=== PATIENT | male | born 1960 | race Caucasian/White ===

== ENCOUNTER 2017-08-28 14:59 | Emergency (ER) | payer BC ==
[2017-08-28 15:13] VITALS: BP 122/83
[2017-08-28] MEDS ORDERED: Sodium Chloride 0.9% 10 ML Syringe FLUSH PRN (15:44)
[2017-08-28] MEDS ORDERED: Sodium Chloride 0.9% 1,000 ML IV ONE (15:44)
[2017-08-28] MEDS ORDERED: Ondansetron 4 MG/2 ML SDV IVPUSH ONE (15:44)
[2017-08-28] MEDS ORDERED: HYDROmorphone 0.5 MG/0.5 ML Syringe IVPUSH ONE (15:45)
--- NOTE | 2017-08-28 15:49 | EDM.PDOC ---
ED HPI GENERAL MEDICAL PROBLEM - General Chief Complaint: Abdominal Pain Stated Complaint: ABD PAIN Time Seen by Provider: 08/28/17 15:30 Source of Information: Reports: Patient History Limitations: Reports: No Limitations - History of Present Illness INITIAL COMMENTS - FREE TEXT/NARRATIVE: Patient is a 57-year-old male who presents to the ED complaining of a mass/ swelling to the right lower inguinal region. Patient states he noticed this past Monday while taking a shower. He has pain to this generalized area. Does not recall specific event that may have precipitated this. Has no history of inguinal hernias. He has no history of hernias. He does have some mild discomfort that radiates down to his testicles. There is no discomfort or pain or swelling noted with palpation of his testicles. No burning sensation with urination. He has had intermittent diarrhea with no blood present. Denies any fever/chills, nausea/vomiting, dizziness, or any additional complaints. He was referred to the ED by a provider at [facility] with concerns of incarcerated bowel due to pain with palpation. Past history includes: Sleep apnea and chest pain. States chest pain secondary to muscle covering one was coronary arteries and when the muscle spasms causes blockage. He does take nitroglycerin intermittently for this.In addition has a history of hypercholesteremia and takes pravastatin. Arthritis takes acetaminophen. Also takes a baby aspirin daily. 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 Right Groin Pain Score (Numeric/FACES): 7 - Related Data Allergies Allergy/AdvReac Type Severity Reaction Status Date / Time No Known Allergies Allergy Verified 08/28/17 15:12 Home Meds: Home Meds Aspirin 81 mg PO DAILY #30 tab.chew 07/06/16 [Rx] Nitroglycerin 0.4 mg SL ASDIRECTED #12 tab.subl 07/06/16 [Rx] Pravastatin Sodium [Pravastatin (Pravachol)] 40 mg PO DAILY #30 tablet 07/06/16 [Rx] Acetaminophen [Tylenol Arthritis] 650 mg PO ASDIRECTED PRN 08/28/17 [History] Acetaminophen/HYDROcodone [Wolcott 325-5 MG] 1 tab PO Q6H PRN #15 tablet 08/28/17 [Rx] Past Medical History Musculoskeletal History: Reports: Osteoarthritis - Past Surgical History Neurological Surgical History: Reports: Lumbar Spine Musculoskeletal Surgical History: Reports: Arthroscopic Knee, Other (See Below) Social & Family History - Tobacco Use Smoking Status *Q: Current Every Day Smoker Years of Tobacco use: 45 Packs/Tins Daily: 0.5 Used Tobacco, but Quit: No Second Hand Smoke Exposure: No - Caffeine Use Caffeine Use: Reports: Soda - Alcohol Use Days Per Week of Alcohol Use: 2 Number of Drinks Per Day: 1 Total Drinks Per Week: 2 - Recreational Drug Use Recreational Drug Use: No ED ROS GENERAL - Review of Systems Review Of Systems: ROS reveals no pertinent complaints other than HPI. ED EXAM, GI/ABD - Physical Exam Exam: See Below Exam Limited By: No Limitations General Appearance: Alert, WD/WN, No Apparent Distress Ears: Hearing Grossly Normal Nose: Normal Inspection Throat/Mouth: Normal Voice, No Airway Compromise Neck: Normal Inspection, Supple, Non-Tender, Full Range of Motion Respiratory/Chest: No Respiratory Distress, Lungs Clear, Normal Breath Sounds, Chest Non-Tender Cardiovascular: Normal Peripheral Pulses, Regular Rate, Rhythm, No Murmur GI/Abdominal Exam: Normal Bowel Sounds, Soft, No Organomegaly, Tender (Right inguinal region with swelling noted. Increasing pain with palpation. Findings concerning for inguinal hernia.) (Male) Exam: Normal Inspection, Circumcised. No: Scrotum Tenderness (L), Scrotum Tenderness (R), Testicular Tenderness (L), Testicular Tenderness (R) Neurological: Alert, Oriented, CN II-XII Intact, Normal Cognition, No Motor/ Sensory Deficits Psychiatric: Normal Affect, Normal Mood Skin Exam: Warm, Dry, Intact, Normal Color Course - Vital Signs Last Recorded V/S: Last Vital Signs Temp 97.5 F 08/28/17 15:09 Pulse 72 08/28/17 15:09 Resp 18 08/28/17 15:09 BP 122/83 08/28/17 15:09 Pulse Ox 97 08/28/17 15:09 - Orders/Labs/Meds Orders: Active Orders 24 hr Category Date Time Status Peripheral IV Care [RC] . DIRECTED Care 08/28/17 15:45 Active NPO Now [Nothing per Oral Now Diet] [DIET] Diet 08/28/17 Breakfast Active Abdomen Pelvis w Cont [CT] Stat Exams 08/28/17 15:44 Taken Sodium Chloride 0.9% [Saline Flush] Med 08/28/17 15:44 Active 10 ml FLUSH ASDIRECTED PRN Peripheral IV Insertion Adult [OM.PC] Stat Oth 08/28/17 15:44 Ordered Medication Orders Sodium Chloride (Saline Flush) 10 ml FLUSH ASDIRECTED PRN PRN Reason: Keep Vein Open Last Admin: 08/28/17 15:54 Dose: 10 ml Labs: Laboratory Tests 08/28/17 08/28/17 08/28/17 Range/Units 15:50 15:50 15:50 WBC 9.85 H (4.23-9.07) K/mm3 RBC 4.78 (4.63-6.08) M/mm3 Hgb 14.5 (13.7-17.5) gm/L Hct 42.0 (40.1-51.0) % MCV 87.9 (79.0-92.2) fl MCH 30.3 (25.7-32.2) pg MCHC 34.5 (32.2-35.5) g/dl RDW Std Deviation 43.1 (35.1-43.9) fL Plt Count 239 (163-337) K/mm3 MPV 11.0 (9.4-12.3) fl Neut % (Auto) 62.6 (34.0-67.9) % Lymph % (Auto) 27.0 (21.8-53.1) % Burke % (Auto) 7.0 (5.3-12.2) % Eos % (Auto) 2.7 (0.8-7.0) Baso % (Auto) 0.5 (0.1-1.2) % Neut # (Auto) 6.16 H (1.78-5.38) K/mm3 Lymph # (Auto) 2.66 (1.32-3.57) K/mm3 Burke # (Auto) 0.69 (0.30-0.82) K/mm3 Eos # (Auto) 0.27 (0.04-0.54) K/mm3 Baso # (Auto) 0.05 (0.01-0.08) K/mm3 Sodium 142 (136-145) mEq/L Potassium 3.9 (3.5-5.1) mEq/L Chloride 107 (98-107) mEq/L Carbon Dioxide 27 (21-32) mEq/L Anion Gap 11.9 (5-15) BUN 8 (7-18) mg/dL Creatinine 1.0 (0.7-1.3) mg/dL Est Cr Clr Drug Dosing 86.18 mL/min Estimated GFR (MDRD) > 60 (>60) mL/min BUN/Creatinine Ratio 8.0 L (14-18) Glucose 111 H (74-106) mg/dL Calcium 8.8 (8.5-10.1) mg/dL Total Bilirubin 0.3 (0.2-1.0) mg/dL AST 19 (15-37) U/L ALT 23 (16-63) U/L Alkaline Phosphatase 89 (46-116) U/L C-Reactive Protein 0.6 (<1.0) mg/dL Total Protein 7.3 (6.4-8.2) g/dl Albumin 3.7 (3.4-5.0) g/dl Globulin 3.6 gm/dL Albumin/Globulin Ratio 1.0 (1-2) Urine Color Yellow (Yellow) Urine Appearance Clear (Clear) Urine pH 6.5 (5.0-8.0) Ur Specific [place] 1.020 (1.005-1.030) Urine Protein Negative (Negative) Urine Glucose (UA) Negative (Negative) Urine Ketones Negative (Negative) Urine Occult Blood Negative (Negative) Urine Nitrite Negative (Negative) Urine Bilirubin Negative (Negative) Urine Urobilinogen 0.2 (0.2-1.0) Ur Leukocyte Esterase Negative (Negative) Urine RBC Not seen (0-5) /hpf Urine WBC Not seen (0-5) /hpf Ur Epithelial Cells 0-5 (0-5) /hpf Urine Bacteria Few (FEW) /hpf Urine Mucus Few (FEW) /hpf Meds: Medications Generic Name Dose Route Start Last Admin Trade Name Freq PRN Reason Stop Dose Admin Sodium Chloride 10 ml 08/28/17 15:44 08/28/17 15:54 Saline Flush FLUSH 10 ml ASDIRECTED PRN Administration Keep Vein Open Discontinued Medications Generic Name Dose Route Start Last Admin Trade Name Freq PRN Reason Stop Dose Admin Diatrizoate Meglum/Diatrizoate Sod 90 ml 08/28/17 16:26 08/28/17 17:04 Gastrografin 37% PO 08/28/17 16:27 90 ml ONETIME ONE Administration Hydromorphone HCl 0.5 mg 08/28/17 15:45 08/28/17 15:55 Dilaudid IVPUSH 08/28/17 15:46 0.5 mg ONETIME ONE Administration Sodium Chloride 1,000 mls @ 500 mls/hr 08/28/17 15:44 08/28/17 15:54 Normal Saline IV 08/28/17 17:43 500 mls/hr ONETIME ONE Administration Iopamidol 125 ml 08/28/17 16:26 08/28/17 17:04 Isovue-300 (61%) IVPUSH 08/28/17 16:27 125 ml ONETIME ONE Administration Ondansetron HCl 4 mg 08/28/17 15:44 08/28/17 15:54 Zofran IVPUSH 08/28/17 15:45 4 mg ONETIME ONE Administration Sodium Chloride 10 ml 08/28/17 16:26 08/28/17 17:04 Saline Flush FLUSH 08/28/17 16:27 10 ml ONETIME ONE Administration - Re-Assessments/Exams Free Text/Narrative Re-Assessment/Exam: IV established with Dilaudid 0.5 mg IVP, 4 mg of Zofran IVP, and normal saline. Initial labs and studies include CBC, chem 14, CRP, UA, and CT the abdomen and pelvis with IV and oral contrast. Patient will be placed on nothing by mouth status. Labs reviewed: CBC and chemistry panel are essentially normal. Glucose was mildly elevated at 111. CRP 0.6. UA revealed no concerning findings. 08/28/17 17:53 CT abdomen and pelvis Technique: Multiple axial sections were obtained from above the dome of the diaphragm inferiorly through the pubic symphysis. Intravenous and oral contrast was utilized. Delayed images were obtained through the bladder. Comparison: No prior abdominal CT. Findings: Small portion of the visualized lung bases shows nothing acute. Liver shows several small low density lesions which measure less than 1 cm and are too small to characterize by Hounsfield unit measurements but most likely represent several minimal cysts. No additional abnormality seen within the liver. Spleen appears within normal limits. Adrenal glands show no nodule. Pancreas is within normal limits. Kidneys show symmetric contrast enhancement without hydronephrosis or mass. Aorta shows no aneurysmal dilatation. No retroperitoneal adenopathy or mesenteric abnormalities are seen. Small fat- containing umbilical hernia is noted. Gallbladder shows no calcified gallstones. Minimal diverticulosis is seen within the sigmoid colon without inflammatory change. Appendix is seen and is normal. No pelvic mass or adenopathy is seen. Fat-containing bilateral inguinal hernias are noted. No bowel dilatation is seen. Delayed images shows contrast within the distal ureters and within the bladder. Bone window settings were reviewed showing slight degenerative change which is scattered throughout the spine. Impression: 1. Incidental findings. Nothing acute is identified on CT study of the abdomen and pelvis. 08/28/17 17:[address] Segovia on-call general surgeon. Recommends patient call his clinic tomorrow and schedule appt that is convenient for him to have the inguinal hernias repaired. Departure - Departure Time of Disposition: 18:05 Disposition: Home, Self-Care 01 Condition: Good Clinical Impression: Abdominal pain Qualifiers: Abdominal location: lower abdomen, unspecified Qualified Code(s): R10.30 - Lower abdominal pain, unspecified Inguinal hernia Qualifiers: Obstruction and gangrene presence: without obstruction or gangrene Laterality: bilateral Recurrence: not specified as recurrent Qualified Code(s): K40.20 - Bilateral inguinal hernia, without obstruction or gangrene, not specified as recurrent - Discharge Information Prescriptions: Acetaminophen/HYDROcodone [Wolcott 325-5 MG] 1 tab PO Q6H PRN #15 tablet PRN Reason: Pain (Severe 7-10) Instructions: Inguinal Hernia, Adult, [id number], Abdominal Pain, Adult, Easy -to-Read Referrals: Lester Segovia MD [Physician] - Forms: ED Department Discharge Additional Instructions: CT of the abdomen revealed bilateral fat containing inguinal hernias. Call Dr. Segovia's office tomorrow to schedule an appointment that is convenient for you. Take hydrocodone one tab every 6 hours as needed for discomfort that is not controlled with Tylenol and/or ibuprofen. Do not take Tylenol and norco together. Do not drive while taking Wolcott. Do not drive this evening since receiving a sedative medication. Refrain from any activities that cause worsening pain. Return to the ED for any new or worsening symptoms. Take a stool softener such as miralax or colace while on the norco. - My Orders Last 24 Hours: My Active Orders 08/28/17 15:44 Abdomen Pelvis w Cont [CT] Stat Sodium Chloride 0.9% [Saline Flush] 10 ml FLUSH ASDIRECTED PRN Peripheral IV Insertion Adult [OM.PC] Stat 08/28/17 15:45 Peripheral IV Care [RC] . DIRECTED 08/28/17 Breakfast NPO Now [Nothing per Oral Now Diet] [DIET] - Assessment/Plan Last 24 Hours: My Active Orders 08/28/17 15:44 Abdomen Pelvis w Cont [CT] Stat Sodium Chloride 0.9% [Saline Flush] 10 ml FLUSH ASDIRECTED PRN Peripheral IV Insertion Adult [OM.PC] Stat 08/28/17 15:45 Peripheral IV Care [RC] . DIRECTED 08/28/17 Breakfast NPO Now [Nothing per Oral Now Diet] [DIET]
[2017-08-28] MEDS ORDERED: Sodium Chloride 0.9% 10 ML Syringe FLUSH ONE (16:26)
[2017-08-28] MEDS ORDERED: Iopamidol 612 MG/ML 150 ML Bottle IVPUSH ONE (16:26)
[2017-08-28] MEDS ORDERED: Diatrizoate Meglumine/Diatrizoate Sodium 37% 120 ML Bottle PO ONE (16:26)
--- NOTE | 2017-08-29 06:37 | CT ---
CT abdomen and pelvis Technique: Multiple axial sections were obtained from above the dome of the diaphragm inferiorly through the pubic symphysis. Intravenous and oral contrast was utilized. Delayed images were obtained through the bladder. Comparison: No prior abdominal CT. Findings: Small portion of the visualized lung bases shows nothing acute. Liver shows several small low density lesions which measure less than 1 cm and are too small to characterize by Hounsfield unit measurements but most likely represent several minimal cysts. No additional abnormality seen within the liver. Spleen appears within normal limits. Adrenal glands show no nodule. Pancreas is within normal limits. Kidneys show symmetric contrast enhancement without hydronephrosis or mass. Aorta shows no aneurysmal dilatation. No retroperitoneal adenopathy or mesenteric abnormalities are seen. Small fat-containing umbilical hernia is noted. Gallbladder shows no calcified gallstones. Minimal diverticulosis is seen within the sigmoid colon without inflammatory change. Appendix is seen and is normal. No pelvic mass or adenopathy is seen. Fat-containing bilateral inguinal hernias are noted. No bowel dilatation is seen. Delayed images shows contrast within the distal ureters and within the bladder. Bone window settings were reviewed showing slight degenerative change which is scattered throughout the spine. Impression: 1. Incidental findings. Nothing acute is identified on CT study of the abdomen and pelvis. Diagnostic code #2
== END 2017-08-28 18:32 | disposition home or self-care (01) ==
LOC: JD.ED 14:59
DX: K40.20 Bilateral inguinal hernia, without obstruction or gangrene, not specified as recurrent (principal); F17.210 Nicotine dependence, cigarettes, uncomplicated; M19.90 Unspecified osteoarthritis, unspecified site; Z79.82 Long term (current) use of aspirin; Z79.899 Other long term (current) drug therapy
CPT/HCPCS: 36415; 74177; 80053; 81001; 85025; 86140; 96361; 96374; 96375; 99284; J1170; J2405; J7040; J7050; Q9963; Q9967; 99283

== ENCOUNTER 2017-09-01 07:38 | Day surgery (SDC) | payer BC ==
[~2017-09-01 07:38] MED LIST: Dexamethasone 4 MG/ML SDV ONE; Ketorolac 30 MG/ML SDV ONE; Lactated Ringers 1,000 ML IV SCH; Lactated Ringers 1,000 ML ONE; Lidocaine 1% 4 ML ONE; Lidocaine 1%/Sod Bicarbonate in NS 8.4% 1 ML Syringe IV PRN; Midazolam 1 MG/ML 2 ML SDV ONE; Ondansetron 4 MG/2 ML SDV ONE; Propofol 200 MG/20 ML SDV ONE; Sodium Chloride 0.9% 10 ML Syringe FLUSH PRN; ceFAZolin 1 GM Vial ONE; fentaNYL 250 MCG/5 ML SDV ONE
--- NOTE | 2017-09-01 08:57 | PCM.PREANE ---
Preanesthetic Assessment - Anesthesia/Transfusion/Family Hx Anesthesia History: Prior Anesthesia Without Reaction Family History of Anesthesia Reaction: No Transfusion History: No Prior Transfusion(s) - Review of Systems General: No Symptoms Pulmonary: No Symptoms Cardiovascular: Chest Pain (last experienced was a year ago) Gastrointestinal: Constipation (at times) Neurological: No Symptoms Other: Reports: None - Physical Assessment NPO Status Date: 08/31/17 NPO Status Time: 21:30 Pulse: 67 O2 Sat by Pulse Oximetry: 97 Respiratory Rate: 16 Blood Pressure: 108/76 Temperature: 36.7 C Vital Signs: Last Vital Signs Temp 36.7 C 09/01/17 07:45 Pulse 67 09/01/17 07:45 Resp 16 09/01/17 07:45 BP 108/76 09/01/17 07:45 Pulse Ox 97 09/01/17 07:45 Height: 1.78 m Weight: 104.78 kg ASA Class: 2 Mental Status: Alert & Oriented x3 Dentition: Reports: Broken Tooth/Teeth, Missing Tooth/Teeth Thyro-Mental Finger Breadths: 2 Mouth Opening Finger Breadths: 2 ROM/Head Extension: Full Lungs: Clear to Auscultation, Normal Respiratory Effort Cardiovascular: Regular Rate, Regular Rhythm, No Murmurs - Imaging/EKG Impressions: SR Abn. R wave progression 08/29/2017 - Allergies Allergies/Adverse Reactions: Allergies Allergy/AdvReac Type Severity Reaction Status Date / Time No Known Allergies Allergy Verified 08/28/17 15:12 PreAnesthesia Questionnaire HEENT History: Reports: Sinusitis, Other (See Below) Other HEENT History: pharyngitis Cardiovascular History: Reports: High Cholesterol, Other (See Below) Other Cardiovascular History: cardiac catheterization, Right cornary artery muscle bundle, chest pain Respiratory History: Reports: Sleep Apnea, Other (See Below) Other Respiratory History: upper respiratory infection, cough Gastrointestinal History: Reports: GERD, Other (See Below) Other Gastrointestinal History: RLQ pain Genitourinary History: Reports: Other (See Below) Other Genitourinary History: right testicle pain 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 Musculoskeletal History: Reports: Back Pain, Chronic, Osteoarthritis, Other ( See Below) Other Musculoskeletal History: low back degenerative joint disease Psychiatric History: Reports: Anxiety Endocrine/Metabolic History: Reports: None Hematologic History: Reports: None Immunologic History: Reports: None Oncologic (Cancer) History: Reports: None Dermatologic History: Reports: None - Past Surgical History Head Surgeries/Procedures: Reports: None HEENT Surgical History: Reports: Oral Surgery Cardiovascular Surgical History: Reports: None GI Surgical History: Reports: None Male Surgical History: Reports: Vasectomy Endocrine Surgical History: Reports: None Neurological Surgical History: Reports: Lumbar Spine Musculoskeletal Surgical History: Reports: Arthroscopic Knee, Other (See Below) Other Musculoskeletal Surgeries/Procedures:: left elbow surgery, low back surgery Oncologic Surgical History: Reports: None Dermatological Surgical History: Reports: None - SUBSTANCE USE Smoking Status *Q: Current Every Day Smoker Tobacco Use Within Last Twelve Months: Cigarettes Second Hand Smoke Exposure: No Days Per Week of Alcohol Use: 2 Number of Drinks Per Day: 1 Total Drinks Per Week: 2 Recreational Drug Use History: No - HOME MEDS Home Medications: Home Meds Aspirin 81 mg PO DAILY #30 tab.chew 07/06/16 [Rx] Nitroglycerin 0.4 mg SL ASDIRECTED #12 tab.subl 07/06/16 [Rx] Pravastatin Sodium [Pravastatin (Pravachol)] 40 mg PO DAILY #30 tablet 07/06/16 [Rx] Acetaminophen [Tylenol Arthritis] 650 mg PO ASDIRECTED PRN 08/28/17 [History] Omeprazole [Omeprazole] 20 mg PO BID 08/31/17 [History] Hydrocodone/Acetaminophen [Hydrocodon-Acetaminophen 5-325] 1 tab PO ASDIRECTED PRN 09/01/17 [History] - CURRENT (IN HOUSE) MEDS Current Meds: Current Medications Lactated Ringer's (Ringers, Lactated) 1,000 mls @ 125 mls/hr IV ASDIRECTED JAVAN Last Admin: 09/01/17 08:00 Dose: 125 mls/hr Lidocaine/Sodium Bicarbonate (Buffered Lidocaine 1% In Ns 8.4%) 0.25 ml IV ONETIME PRN PRN Reason: Prior to IV Start Last Admin: 09/01/17 08:00 Dose: 0.25 ml Sodium Chloride (Saline Flush) 10 ml FLUSH ASDIRECTED PRN PRN Reason: Keep Vein Open Discontinued Medications Cefazolin Sodium (Ancef) Confirm Administered Dose 2 gm .ROUTE .STK-MED ONE Stop: 09/01/17 07:06 Dexamethasone (Dexamethasone) Confirm Administered Dose 4 mg .ROUTE .STK-MED ONE Stop: 09/01/17 07:06 Fentanyl (Sublimaze) Confirm Administered Dose 250 mcg .ROUTE .STK-MED ONE Stop: 09/01/17 07:07 Lidocaine HCl (Xylocaine-Mpf 1%) Confirm Administered Dose 4 mls @ as directed .ROUTE .STK-MED ONE Stop: 09/01/17 07:06 Lactated Ringer's (Ringers, Lactated) Confirm Administered Dose 1,000 mls @ as directed .ROUTE .STK-MED ONE Stop: 09/01/17 07:06 Ketorolac Tromethamine (Toradol) Confirm Administered Dose 30 mg .ROUTE .STK- MED ONE Stop: 09/01/17 07:06 Midazolam HCl (Versed 1 Mg/Ml) Confirm Administered Dose 2 mg .ROUTE .STK-MED ONE Stop: 09/01/17 07:06 Ondansetron HCl (Zofran) Confirm Administered Dose 4 mg .ROUTE .STK-MED ONE Stop: 09/01/17 07:06 Propofol (Diprivan 20 Ml) Confirm Administered Dose 200 mg .ROUTE .STK-MED ONE Stop: 09/01/17 07:06
[2017-09-01] MEDS ORDERED: Lidocaine 1% with EPINEPHrine 1:100,000 20 ML MDV ONE (09:03)
[2017-09-01] MEDS ORDERED: Bupivacaine 0.5%/EPINEPHrine 1:200,000 50 ML MDV ONE (09:03)
[2017-09-01] MEDS ORDERED: HYDROmorphone 0.5 MG/0.5 ML Syringe IVPUSH PRN (09:39)
[2017-09-01] MEDS ORDERED: fentaNYL 100 MCG/2 ML SDV IVPUSH PRN (09:39)
[2017-09-01] MEDS ORDERED: Ondansetron 4 MG/2 ML SDV IVPUSH PRN (09:39)
[2017-09-01] MEDS ORDERED: Albuterol 0.083% 2.5 MG/3 ML Neb Soln NEB PRN (09:39)
[2017-09-01] MEDS ORDERED: HYDROmorphone 1 MG/ML Syringe ONE ×2 (09:41→10:06)
[2017-09-01] MEDS ORDERED: Phenylephrine 1 MG in Sodium Chloride 0.9% 10 ML IV SCH (09:45)
[2017-09-01] MEDS ORDERED: Lactated Ringers 1,000 ML ONE (10:06)
[2017-09-01] MEDS ORDERED: fentaNYL 100 MCG/2 ML SDV ONE (10:49)
--- NOTE | 2017-09-01 11:17 | PCM.OPNOTE ---
- General Post-Op/Procedure Note Date of Surgery/Procedure: 09/01/17 Operative Procedure(s): Open right inguinal hernia repair with plug and mesh Findings: Large direct inguinal hernia with chronic scarring of the canal structures Pre Op Diagnosis: Symptomatic right inguinal hernia Post-Op Diagnosis: Direct right inguinal hernia Anesthesia Technique: General LMA, Local Primary Surgeon: Lester Segovia Pathology: None EBL in mLs: 5 Complications: None Condition: Good Free Text/Narrative:: After adequate LMA general anesthesia was obtained the patient's right groin was prepped and draped sterilely for the procedure. Local analgesia was given over the inguinal canal. A 15 blade was used to make a skin incision into the subcutaneous fat. The superficial veins were ligated with 3-0 Vicryl and divided. The incision was then deepened to the external oblique fascia which was opened in the direction of its fibers carefully avoiding the ilioinguinal nerve which was displaced inferiorly. The spermatic cord and structures were mobilized at the pubic tubercle and controlled with a [place] drain. There was a large direct hernia sac which was deep to the cord. I the cord structures from the direct hernia and reduced it through the floor. I did not open the floor of the canal. I then explored the spermatic cord for an indirect component and there was none. I placed a plug in the floor of the canal and secured it to the edge of the inguinal ligament and the arch with 3 interrupted 0 Ethibond sutures. I then placed a Prolene mesh in the floor of the canal running 2-0 Prolene along the shelving edge and along the internal oblique fascia allowing the spermatic cord to pass through a keyhole laterally. The field was irrigated out with saline. I replaced the cord structures after hemostasis. I closed the external oblique fascia over the nerve and the spermatic cord. [place]'s was closed with 3-0 Vicryl and the skin was closed with a 4-0 Vicryl after additional local analgesia was given in the area. There were no procedural complications.
--- NOTE | 2017-09-01 11:25 | PCM.POSTAN ---
POST ANESTHESIA ASSESSMENT - MENTAL STATUS Mental Status: Alert - VITAL SIGNS Pulse Rate: 83 SaO2: 92 Resp Rate: 11 Blood Pressure: 118/83 Temperature: 36.3 C - RESPIRATORY Respiratory Status: Respiratory Rate WNL, Airway Patent, O2 Saturation Stable, Supplemental Oxygen - CARDIOVASCULAR CV Status: Pulse Rate WNL, Blood Pressure Stable - GASTROINTESTINAL GI Status: No Symptoms - POST OP HYDRATION Hydration Status: Adequate & Stable
[2017-09-01 12:44] VITALS: BP 118/86
--- NOTE | 2017-09-01 13:41 | PCM48HPAN ---
Post Anesthesia Note - EVALUATION WITHIN 48HRS OF ANESTHETIC Vital Signs in Normal Range: Yes Patient Participated in Evaluation: Yes Respiratory Function Stable: Yes Airway Patent: Yes Cardiovascular Function Stable: Yes Hydration Status Stable: Yes Pain Control Satisfactory: Yes Nausea and Vomiting Control Satisfactory: Yes Mental Status Recovered: Yes
== END 2017-09-01 13:30 | disposition home or self-care (01) ==
LOC: JD.SDS 07:38
PROVIDERS: ATTEND Surgery
DX: K40.90 Unilateral inguinal hernia, without obstruction or gangrene, not specified as recurrent (principal); E78.00 Pure hypercholesterolemia, unspecified; G47.30 Sleep apnea, unspecified; K21.9 Gastro-esophageal reflux disease without esophagitis; M19.90 Unspecified osteoarthritis, unspecified site; F17.210 Nicotine dependence, cigarettes, uncomplicated; Z98.52 Vasectomy status; Z98.818 Other dental procedure status; Z98.890 Other specified postprocedural states; Z79.82 Long term (current) use of aspirin; Z79.899 Other long term (current) drug therapy
CPT/HCPCS: 49505; C1781; J0690; J1100; J1170; J2250; J2405; J3010; J7120; 00830; J1885; J2704

== ENCOUNTER 2017-09-04 12:06 | Inpatient (IN) | payer BC ==
[2017-09-04] MEDS ORDERED: Sodium Chloride 0.9% 10 ML Syringe FLUSH PRN ×3 (12:24→21:18)
[2017-09-04] MEDS ORDERED: Sodium Chloride 0.9% 1,000 ML IV SCH (12:30)
[2017-09-04] MEDS ORDERED: Diatrizoate Meglumine/Diatrizoate Sodium 37% 120 ML Bottle PO ONE (12:31)
[2017-09-04] MEDS ORDERED: Iopamidol 612 MG/ML 150 ML Bottle IVPUSH ONE (12:31)
--- NOTE | 2017-09-04 12:37 | EDM.PDOC ---
ED HPI GENERAL MEDICAL PROBLEM - General Chief Complaint: Abdominal Pain Stated Complaint: [facility] Time Seen by Provider: 09/04/17 12:13 Source of Information: Reports: Patient, EMS History Limitations: Reports: No Limitations - History of Present Illness INITIAL COMMENTS - FREE TEXT/NARRATIVE: The patient presents by [facility] for low back pain and lower abdominal pain. This started early this morning at 3am. He is 5 days post right inguinal hernia repair that was done here at [facility] by Dr Segovia. He has a history of bulging discs in his low back and he has muscle cramps with it. He also has nausea. He has not had a good BM since Monday. He has no fever, chills, cough, chest pain or shortness of breath. He has pain to the right groin with some edema. He denies dysuria. Onset: Sudden Duration: Hour(s): (3am) Location: Reports: Abdomen Quality: Reports: Sharp Severity: Severe Improves with: Reports: None Worsens with: Reports: None Associated Symptoms: Reports: Nausea/Vomiting. Denies: Chest Pain, Fever/Chills , Shortness of Breath Right Groin Pain Score (Numeric/FACES): 7 - Related Data Allergies Allergy/AdvReac Type Severity Reaction Status Date / Time No Known Allergies Allergy Verified 09/04/17 12:16 Home Meds: Home Meds Aspirin 81 mg PO DAILY #30 tab.chew 07/06/16 [Rx] Nitroglycerin 0.4 mg SL ASDIRECTED #12 tab.subl 07/06/16 [Rx] Pravastatin Sodium [Pravastatin (Pravachol)] 40 mg PO DAILY #30 tablet 07/06/16 [Rx] Acetaminophen [Tylenol Arthritis] 650 mg PO ASDIRECTED PRN 08/28/17 [History] Omeprazole 20 mg PO BID 08/31/17 [History] Hydrocodone/Acetaminophen [Hydrocodon-Acetaminophen 5-325] 1 tab PO ASDIRECTED PRN 09/01/17 [History] oxyCODONE HCl/Acetaminophen [oxyCODONE-Acetaminophen 5-325] 1 tab PO Q6HR PRN [History] Past Medical History HEENT History: Reports: Sinusitis, Other (See Below) Other HEENT History: pharyngitis Cardiovascular History: Reports: High Cholesterol, Other (See Below) Other Cardiovascular History: cardiac catheterization, Right cornary artery muscle bundle, chest pain Respiratory History: Reports: Sleep Apnea, Other (See Below) Other Respiratory History: upper respiratory infection, cough Gastrointestinal History: Reports: GERD, Other (See Below) Other Gastrointestinal History: RLQ pain Genitourinary History: Reports: Other (See Below) Other Genitourinary History: right testicle pain [employer] History: Reports: None Musculoskeletal History: Reports: Back Pain, Chronic, Osteoarthritis, Other ( See Below) Other Musculoskeletal History: low back degenerative joint disease Psychiatric History: Reports: Anxiety Endocrine/Metabolic History: Reports: None Hematologic History: Reports: None Immunologic History: Reports: None Oncologic (Cancer) History: Reports: None Dermatologic History: Reports: None - Past Surgical History Head Surgeries/Procedures: Reports: None HEENT Surgical History: Reports: Oral Surgery Cardiovascular Surgical History: Reports: None GI Surgical History: Reports: Hernia Repair/Other Male Surgical History: Reports: Vasectomy Endocrine Surgical History: Reports: None Neurological Surgical History: Reports: Lumbar Spine Musculoskeletal Surgical History: Reports: Arthroscopic Knee, Other (See Below) Other Musculoskeletal Surgeries/Procedures:: left elbow surgery, low back surgery Oncologic Surgical History: Reports: None Dermatological Surgical History: Reports: None Social & Family History - Family History Family Medical History: Noncontributory - Tobacco Use Smoking Status *Q: Current Every Day Smoker Years of Tobacco use: 45 Packs/Tins Daily: 0.5 Used Tobacco, but Quit: No Second Hand Smoke Exposure: No - Caffeine Use Caffeine Use: Reports: Coffee, Soda - Alcohol Use Days Per Week of Alcohol Use: 2 Number of Drinks Per Day: 1 Total Drinks Per Week: 2 - Recreational Drug Use Recreational Drug Use: No ED ROS GENERAL - Review of Systems Review Of Systems: See Below Constitutional: Reports: No Symptoms HEENT: Reports: No Symptoms Respiratory: Reports: No Symptoms Cardiovascular: Reports: No Symptoms Endocrine: Reports: No Symptoms GI/Abdominal: Reports: Abdominal Pain, Constipation, Nausea. Denies: Vomiting ED EXAM, GI/ABD - Physical Exam Exam: See Below Exam Limited By: No Limitations General Appearance: Alert, No Apparent Distress Ears: Normal External Exam Nose: Normal Inspection Head: Atraumatic, Normocephalic Neck: Normal Inspection Respiratory/Chest: No Respiratory Distress, Lungs Clear, Normal Breath Sounds Cardiovascular: Regular Rate, Rhythm, No Edema, No Murmur GI/Abdominal Exam: Soft, No Organomegaly, No Mass, Tender (Moderate to the lower abdomen), Other (Edema but no erythema to the right inguinal area) Course - Vital Signs Last Recorded V/S: Last Vital Signs Temp 99.0 F 09/04/17 12:11 Pulse 92 09/04/17 12:11 Resp 14 09/04/17 12:11 BP 130/75 09/04/17 12:11 Pulse Ox 79 L 09/04/17 12:30 - Orders/Labs/Meds Orders: Active Orders 24 hr Category Date Time Status Peripheral IV Care [RC] . DIRECTED Care 09/04/17 12:25 Active CULTURE BLOOD [BC] Stat Lab 09/04/17 15:00 Ordered CULTURE BLOOD [BC] Stat Lab 09/04/17 15:00 Ordered UA W/MICROSCOPIC [URIN] Stat Lab 09/04/17 12:24 Uncollected Sodium Chloride 0.9% [Normal Saline] 1,000 ml Med 09/04/17 12:30 Active IV ASDIRECTED Sodium Chloride 0.9% [Saline Flush] Med 09/04/17 12:24 Active 10 ml FLUSH ASDIRECTED PRN Sodium Chloride 0.9% [Saline Flush] Med 09/04/17 12:31 Active 10 ml FLUSH ONETIME PRN Vancomycin [Vancocin] 1.5 gm Med 09/04/17 14:56 Active Sodium Chloride 0.9% [Normal Saline] 250 ml IV ONETIME cefOXitin [Mefoxin] 2 gm Med 09/04/17 14:56 Active Sodium Chloride 0.9% [Normal Saline] 100 ml IV ONETIME Blood Culture x2 Reflex Set [OM.PC] Stat Oth 09/04/17 15:00 Ordered Peripheral IV Insertion Adult [OM.PC] Stat Oth 09/04/17 12:24 Ordered Medication Orders Sodium Chloride (Normal Saline) 1,000 mls @ 125 mls/hr IV ASDIRECTED [facility] Last Admin: 09/04/17 12:39 Dose: 125 mls/hr Cefoxitin Sodium 2 gm/ Sodium (Chloride) 100 mls @ 200 mls/hr IV ONETIME ONE Stop: 09/04/17 15:25 Vancomycin HCl 1.5 gm/ Sodium (Chloride) 250 mls @ 250 mls/hr IV ONETIME ONE Stop: 09/04/17 15:55 Sodium Chloride (Saline Flush) 10 ml FLUSH ASDIRECTED PRN PRN Reason: Keep Vein Open Last Admin: 09/04/17 12:40 Dose: 10 ml Sodium Chloride (Saline Flush) 10 ml FLUSH ONETIME PRN PRN Reason: IV FLUSH Last Admin: 09/04/17 13:43 Dose: 10 ml Labs: Laboratory Tests 09/04/17 09/04/17 Range/Units 12:50 12:50 WBC 15.48 H (4.23-9.07) K/mm3 RBC 4.64 (4.63-6.08) M/mm3 Hgb 14.0 (13.7-17.5) gm/L Hct 41.1 (40.1-51.0) % MCV 88.6 (79.0-92.2) fl MCH 30.2 (25.7-32.2) pg MCHC 34.1 (32.2-35.5) g/dl RDW Std Deviation 43.0 (35.1-43.9) fL Plt Count 234 (163-337) K/mm3 MPV 10.3 (9.4-12.3) fl Neut % (Auto) 79.2 H (34.0-67.9) % Lymph % (Auto) 10.7 L (21.8-53.1) % Holt % (Auto) 8.6 (5.3-12.2) % Eos % (Auto) 1.0 (0.8-7.0) Baso % (Auto) 0.2 (0.1-1.2) % Neut # (Auto) 12.26 H (1.78-5.38) K/mm3 Lymph # (Auto) 1.66 (1.32-3.57) K/mm3 Holt # (Auto) 1.33 H (0.30-0.82) K/mm3 Eos # (Auto) 0.16 (0.04-0.54) K/mm3 Baso # (Auto) 0.03 (0.01-0.08) K/mm3 Sodium 139 (136-145) mEq/L Potassium 3.9 (3.5-5.1) mEq/L Chloride 101 (98-107) mEq/L Carbon Dioxide 25 (21-32) mEq/L Anion Gap 16.9 H (5-15) BUN 14 (7-18) mg/dL Creatinine 1.1 (0.7-1.3) mg/dL Est Cr Clr Drug Dosing 78.35 mL/min Estimated GFR (MDRD) > 60 (>60) mL/min BUN/Creatinine Ratio 12.7 L (14-18) Glucose 101 (74-106) mg/dL Calcium 9.0 (8.5-10.1) mg/dL Total Bilirubin 0.8 (0.2-1.0) mg/dL AST 14 L (15-37) U/L ALT 17 (16-63) U/L Alkaline Phosphatase 75 (46-116) U/L Total Protein 7.4 (6.4-8.2) g/dl Albumin 3.3 L (3.4-5.0) g/dl Globulin 4.1 gm/dL Albumin/Globulin Ratio 0.8 L (1-2) Lipase 92 (73-393) U/L Meds: Medications Generic Name Dose Route Start Last Admin Trade Name Freq PRN Reason Stop Dose Admin Sodium Chloride 1,000 mls @ 125 mls/hr 09/04/17 12:30 09/04/17 12:39 Normal Saline IV 125 mls/hr ASDIRECTED JAVAN Administration Cefoxitin Sodium 2 gm/ Sodium 100 mls @ 200 mls/hr 09/04/17 14:56 Chloride IV 09/04/17 15:25 ONETIME ONE Vancomycin HCl 1.5 gm/ Sodium 250 mls @ 250 mls/hr 09/04/17 14:56 Chloride IV 09/04/17 15:55 ONETIME ONE Sodium Chloride 10 ml 09/04/17 12:24 09/04/17 12:40 Saline Flush FLUSH 10 ml ASDIRECTED PRN Administration Keep Vein Open Sodium Chloride 10 ml 09/04/17 12:31 09/04/17 13:43 Saline Flush FLUSH 10 ml ONETIME PRN Administration IV FLUSH Discontinued Medications Generic Name Dose Route Start Last Admin Trade Name Freq PRN Reason Stop Dose Admin Diatrizoate Meglum/Diatrizoate Sod 120 ml 09/04/17 12:31 09/04/17 13:42 Gastrografin 37% PO 09/04/17 12:32 90 ml ONETIME ONE Administration Fentanyl 50 mcg 09/04/17 13:52 09/04/17 14:02 Sublimaze IVPUSH 09/04/17 13:53 50 mcg ONETIME ONE Administration Iopamidol 150 ml 09/04/17 12:31 09/04/17 13:42 Isovue-300 (61%) IVPUSH 09/04/17 12:32 125 ml ONETIME ONE Administration - Re-Assessments/Exams Free Text/Narrative Re-Assessment/Exam: 09/04/17 12:46 I ordered an IV NS, labs, UA and a CT of his abdomen and pelvis. 09/04/17 15:07 His WBC was elevated at 15.48. His anion gap was elevated at 16.9. His CT shows increased soft tissue density as well as soft tissue air and small amount of fluid within the right inguinal region. Findings most likely are due to previous surgery but difficult to exclude cellulitis/infection if patient has infectious symptoms. He does have symptoms. I have ordered blood cultures and I talked with Dr Segovia and he accepted the patient. I will order mefoxin 2 grams IV Q 6hr and vancomycin 1.5grams every 8 hours. Departure - Departure Time of Disposition: 15:10 Disposition: Admitted As Inpatient 68 Condition: Fair Clinical Impression: Cellulitis, wound, post-operative Qualifiers: Encounter type: initial encounter Qualified Code(s): T81.4XXA - Infection following a procedure, initial encounter - Discharge Information Forms: ED Department Discharge - My Orders Last 24 Hours: My Active Orders 09/04/17 12:24 UA W/MICROSCOPIC [URIN] Stat Sodium Chloride 0.9% [Saline Flush] 10 ml FLUSH ASDIRECTED PRN Peripheral IV Insertion Adult [OM.PC] Stat 09/04/17 12:25 Peripheral IV Care [RC] . DIRECTED 09/04/17 12:30 Sodium Chloride 0.9% [Normal Saline] 1,000 ml IV ASDIRECTED 09/04/17 12:31 Sodium Chloride 0.9% [Saline Flush] 10 ml FLUSH ONETIME PRN 09/04/17 14:56 Vancomycin [Vancocin] 1.5 gm Sodium Chloride 0.9% [Normal Saline] 250 ml IV ONETIME cefOXitin [Mefoxin] 2 gm Sodium Chloride 0.9% [Normal Saline] 100 ml IV ONETIME 09/04/17 15:00 CULTURE BLOOD [BC] Stat CULTURE BLOOD [BC] Stat Blood Culture x2 Reflex Set [OM.PC] Stat - Assessment/Plan Last 24 Hours: My Active Orders 09/04/17 12:24 UA W/MICROSCOPIC [URIN] Stat Sodium Chloride 0.9% [Saline Flush] 10 ml FLUSH ASDIRECTED PRN Peripheral IV Insertion Adult [OM.PC] Stat 09/04/17 12:25 Peripheral IV Care [RC] . DIRECTED 09/04/17 12:30 Sodium Chloride 0.9% [Normal Saline] 1,000 ml IV ASDIRECTED 09/04/17 12:31 Sodium Chloride 0.9% [Saline Flush] 10 ml FLUSH ONETIME PRN 09/04/17 14:56 Vancomycin [Vancocin] 1.5 gm Sodium Chloride 0.9% [Normal Saline] 250 ml IV ONETIME cefOXitin [Mefoxin] 2 gm Sodium Chloride 0.9% [Normal Saline] 100 ml IV ONETIME 09/04/17 15:00 CULTURE BLOOD [BC] Stat CULTURE BLOOD [BC] Stat Blood Culture x2 Reflex Set [OM.PC] Stat
[2017-09-04] MEDS ORDERED: fentaNYL 100 MCG/2 ML SDV IVPUSH ONE (13:52)
--- NOTE | 2017-09-04 14:03 | CT ---
CT abdomen and pelvis Technique: Multiple axial sections were obtained from above the dome of the diaphragm inferiorly through the pubic symphysis. Intravenous and oral contrast was utilized. Comparison: Previous CT abdomen and pelvis exam of 08/28/17. Findings: Soft tissue air and increased soft tissue density is seen within the right inguinal region. Small amount of fluid is seen within the right inguinal region. Findings presumably due to previous surgery but difficult to exclude inflammatory change and infection if patient has any correlating symptoms. Atelectasis is noted within both posterior lungs. Low-density lesions seen within the right lobe of liver most likely representing minimal cyst which is stable from prior study. Gallbladder shows no calcified gallstones. Spleen appears within normal limits. Adrenal glands show no nodule. Pancreas is within normal limits. Kidneys show symmetric contrast enhancement without hydronephrosis or mass. Aorta shows no aneurysmal dilatation. No retroperitoneal adenopathy or mesenteric abnormalities are seen. Appendix is seen which appears normal. No pelvic mass or adenopathy is seen. No free fluid is seen. Bone window settings were reviewed which shows minimal degenerative change scattered within the spine. Small fat-containing umbilical hernia is seen. Delayed images through the bladder were obtained which shows contrast within the distal ureters and bladder. Impression: 1. Increased soft tissue density as well as soft tissue air and small amount of fluid within the right inguinal region. Findings most likely are due to previous surgery but difficult to exclude cellulitis/infection if patient has infectious symptoms. 2. Other incidental findings as noted above. Diagnostic code #3
[2017-09-04] MEDS ORDERED: cefOXitin 2 GM in Sodium Chloride 0.9% 100 ML IV ONE (14:56)
[2017-09-04] MEDS ORDERED: Vancomycin 1 GM, Vancomycin 500 MG in Sodium Chloride 0.9% 500 ML IV ONE (15:15)
[2017-09-04] MEDS ORDERED: cefOXitin 2 GM in Premix Bag 1 BAG IV SCH (15:15)
[2017-09-04] MEDS ORDERED: Pneumococcal Polyvalent-23 Vaccine 0.5 ML SDV IM ONE (16:59)
[2017-09-04] MEDS ORDERED: Ondansetron 4 MG/2 ML SDV IVPUSH PRN (17:03)
[2017-09-04] MEDS: HYDROmorphone 0.5 MG/0.5 ML Syringe IVPUSH PRN ×2 (17:36→21:19)
--- NOTE | 2017-09-04 21:17 | PCM.HP ---
H&P History of Present Illness - General Date of Service: 09/04/17 Admit Problem/Dx: Admission Diagnosis/Problem Admission Diagnosis/Problem Cellulitis Source of Information: Patient - History of Present Illness Initial Comments - Free Text/Narative: 57-year-old male is 3 days status post an open right inguinal hernia repair with plug and patch for a large direct hernia. 2 days after the procedure he had increasing right inguinal pain and low back pain. Because of the severe discomfort he presented to the emergency room this afternoon with a complaint of pain. Temperature was normal. His white blood cell count was elevated. A CT scan ordered by staff of the area revealed post surgical changes. Because of his discomfort and the possibility of an early infection he was admitted for IV antibiotics and pain management. Right Groin Pain Score (Numeric/FACES): 7 - Related Data Allergies/Adverse Reactions: Allergies Allergy/AdvReac Type Severity Reaction Status Date / Time No Known Allergies Allergy Verified 09/04/17 12:16 Home Medications: Home Meds Aspirin 81 mg PO DAILY #30 tab.chew 07/06/16 [Rx] Nitroglycerin 0.4 mg SL ASDIRECTED #12 tab.subl 07/06/16 [Rx] Pravastatin Sodium [Pravastatin (Pravachol)] 40 mg PO DAILY #30 tablet 07/06/16 [Rx] Acetaminophen [Tylenol Arthritis] 650 mg PO ASDIRECTED PRN 08/28/17 [History] Omeprazole 20 mg PO BID 08/31/17 [History] Hydrocodone/Acetaminophen [Hydrocodon-Acetaminophen 5-325] 1 tab PO ASDIRECTED PRN 09/01/17 [History] oxyCODONE HCl/Acetaminophen [oxyCODONE-Acetaminophen 5-325] 1 tab PO Q6HR PRN [History] Past Medical History HEENT History: Reports: Sinusitis, Other (See Below) Other HEENT History: pharyngitis Cardiovascular History: Reports: High Cholesterol, Other (See Below) Other Cardiovascular History: cardiac catheterization, Right cornary artery muscle bundle, chest pain Respiratory History: Reports: Sleep Apnea, Other (See Below) Other Respiratory History: upper respiratory infection, cough Gastrointestinal History: Reports: GERD, Other (See Below) Other Gastrointestinal History: RLQ pain Genitourinary History: Reports: Other (See Below) Other Genitourinary History: right testicle pain, takes a while to go [employer] History: Reports: None Musculoskeletal History: Reports: Back Pain, Chronic, Osteoarthritis, Other ( See Below) Other Musculoskeletal History: low back degenerative joint disease Psychiatric History: Reports: Anxiety Endocrine/Metabolic History: Reports: None Hematologic History: Reports: None Immunologic History: Reports: None Oncologic (Cancer) History: Reports: None Dermatologic History: Reports: None - Past Surgical History Head Surgeries/Procedures: Reports: None HEENT Surgical History: Reports: Oral Surgery Other HEENT Surgeries/Procedures: compact wisdom teeth Cardiovascular Surgical History: Reports: None Respiratory Surgical History: Reports: None GI Surgical History: Reports: Hernia Repair/Other Male Surgical History: Reports: Vasectomy Other Male Surgeries/Procedures: 32 ago Endocrine Surgical History: Reports: None Neurological Surgical History: Reports: Lumbar Spine Musculoskeletal Surgical History: Reports: Arthroscopic Knee, Other (See Below) Other Musculoskeletal Surgeries/Procedures:: left elbow surgery, low back surgery, both knees done-meniscus Oncologic Surgical History: Reports: None Dermatological Surgical History: Reports: None Social & Family History - Family History Family Medical History: Noncontributory - Tobacco Use Smoking Status *Q: Current Every Day Smoker Years of Tobacco use: 45 Packs/Tins Daily: 0.5 Used Tobacco, but Quit: No Second Hand Smoke Exposure: Yes - Caffeine Use Caffeine Use: Reports: Soda Other Caffeine Use: 2-0.5 L - Alcohol Use Days Per Week of Alcohol Use: 2 Number of Drinks Per Day: 0 Total Drinks Per Week: 0 - Recreational Drug Use Recreational Drug Use: No H&P Review of Systems - Review of Systems: Review Of Systems: ROS reveals no pertinent complaints other than HPI. Exam - Exam Exam: See Below - Vital Signs Vital Signs: Last Vital Signs Temp 37.3 C 09/04/17 20:50 Pulse 88 09/04/17 20:50 Resp 20 09/04/17 20:50 BP 124/69 09/04/17 20:50 Pulse Ox 98 09/04/17 20:50 Weight: 106.64 kg - Exam Quality Assessment: Supplemental Oxygen General: Alert, Oriented, Cooperative, Mild Distress Neck: Supple, Trachea Midline Lungs: Normal Respiratory Effort GI/Abdominal Exam: Soft, Non-Tender, Other (The incision is clean dry and intact with no ecchymosis or hematoma. There is no erythema at the incision site. There is no induration. He does have an obese abdomen and inguinal area slowly exam is suboptimal.) (Male) Exam: No Hernia Rectal (Males) Exam: Deferred Extremities: Normal Inspection Skin: Warm, Dry, Intact Neuro Extensive - Mental Status: Alert, Oriented x3 Psychiatric: Alert, Normal Affect - Patient Data Lab Results Last 24 hrs: Laboratory Results - last 24 hr 09/04/17 Range/Units 16:35 Urine Color Yellow (Yellow) Urine Appearance Clear (Clear) Urine pH 6.0 (5.0-8.0) Ur Specific [place] 1.020 (1.005-1.030) Urine Protein Negative (Negative) Urine Glucose (UA) Negative (Negative) Urine Ketones Negative (Negative) Urine Occult Blood Trace-intact H (Negative) Urine Nitrite Negative (Negative) Urine Bilirubin Negative (Negative) Urine Urobilinogen 0.2 (0.2-1.0) Ur Leukocyte Esterase Negative (Negative) Urine RBC Not seen (0-5) /hpf Urine WBC 0-5 (0-5) /hpf Ur Epithelial Cells 0-5 (0-5) /hpf Urine Bacteria Not seen (FEW) /hpf Urine Mucus Not seen (FEW) /hpf Result Diagrams: 09/04/17 12:50 09/04/17 12:50 *Q Meaningful Use (ADM) - VTE *Q VTE Criteria *Q: - Stroke *Q Stroke Criteria *Q: - AMI *Q AMI Criteria *Q: - Problem List (1) Postoperative pain, acute, groin SNOMED Code(s): 143367254 ICD Code: R10.30 - LOWER ABDOMINAL PAIN, UNSPECIFIED; G89.18 - OTHER ACUTE POSTPROCEDURAL PAIN Status: Acute Priority: Medium Current Visit: Yes Qualifiers: Laterality: right Qualified Code(s): R10.31 - Right lower quadrant pain; G89.18 - Other acute postprocedural pain; G89.18 - Other acute postprocedural pain Problem List Initiated/Reviewed/Updated: Yes Orders Last 24hrs: Active Orders 24 hr Category Date Time Status Patient Status [ADT] Routine ADT 09/04/17 16:08 Active Bedrest Bathroom Privileges [RC] ASDIRECTED Care 09/04/17 17:00 Active Oxygen Therapy [RC] ASDIRECTED Care 09/04/17 17:01 Active Regular Diet [DIET] Diet 09/04/17 Dinner Active HYDROmorphone [Dilaudid] Med 09/04/17 17:02 Active 0.5 mg IVPUSH Q1H PRN Ondansetron [Zofran] Med 09/04/17 17:03 Active 4 mg IVPUSH Q8H PRN Vancomycin 1 gm Med 09/05/17 03:00 Active Vancomycin 500 mg Sodium Chloride 0.9% [Normal Saline] 500 ml IV Q12HR cefOXitin [Mefoxin in Dextrose,Iso-Osm 2 GM/50 ML] 2 gm Med 09/04/17 23:00 Active Premix Bag 1 bag IV Q8H Code Status [Resuscitation Status] Routine Resus Stat 09/04/17 16:59 Ordered Medication Orders Hydromorphone HCl (Dilaudid) 0.5 mg IVPUSH Q1H PRN PRN Reason: Pain (severe 7-10) Last Admin: 09/04/17 17:36 Dose: 0.5 mg Sodium Chloride (Normal Saline) 1,000 mls @ 125 mls/hr IV ASDIRECTED JAVAN Last Admin: 09/04/17 12:39 Dose: 125 mls/hr Cefoxitin Sodium 2 gm/ Premix 50 mls @ 100 mls/hr IV ONETIME JAVAN Last Admin: 09/04/17 15:23 Dose: 100 mls/hr Cefoxitin Sodium 2 gm/ Premix 50 mls @ 100 mls/hr IV Q8H JAVAN Vancomycin HCl 1 gm/Vancomycin HCl 500 mg/ Sodium Chloride 500 mls @ 333 mls/ hr IV Q12HR JAVAN Ondansetron HCl (Zofran) 4 mg IVPUSH Q8H PRN PRN Reason: Nausea/Vomiting Sodium Chloride (Saline Flush) 10 ml FLUSH ASDIRECTED PRN PRN Reason: Keep Vein Open Last Admin: 09/04/17 12:40 Dose: 10 ml Sodium Chloride (Saline Flush) 10 ml FLUSH ONETIME PRN PRN Reason: IV FLUSH Last Admin: 09/04/17 13:43 Dose: 10 ml Assessment/Plan Comment:: imp: Patient underwent an extensive right hernia repair. He has an acute post op pain syndrome. It's also possible that he may have a cellulitis although the examination is not consistent with this. Nevertheless I started him on braod spectrum antibiotic coverage. plan: IV analgesics and IV antibiotics. Flexeril for back spasms.
[2017-09-04] MEDS ORDERED: Cyclobenzaprine 10 MG Tab PO PRN (21:18)
[2017-09-04] MEDS ORDERED: Acetaminophen/HYDROcodone 325-5 MG Tab PO PRN (21:19)
[2017-09-04] MEDS ORDERED: Acetaminophen 325 MG Tab PO PRN (21:25)
[2017-09-04] MEDS ORDERED: Nitroglycerin 0.4 MG Tab.SL SL SCH (21:30)
[2017-09-04] MEDS: cefOXitin 2 GM in Premix Bag 1 BAG IV SCH (23:20)
[2017-09-05] MEDS: Vancomycin 1 GM, Vancomycin 500 MG in Sodium Chloride 0.9% 500 ML IV SCH ×3 (03:24→16:02)
[2017-09-05] MEDS: Pantoprazole 40 MG Tab.CR PO SCH ×2 (05:15→16:02)
[2017-09-05] MEDS: cefOXitin 2 GM in Premix Bag 1 BAG IV SCH ×3 (06:52→22:21)
[2017-09-05] MEDS: Aspirin 81 MG Tab.Chew PO SCH (09:15)
--- NOTE | 2017-09-05 11:00 | PCM.SURGPN ---
- General Info Date of Service: 09/05/17 Functional Status: Reports: Pain Controlled, Tolerating Diet, Ambulating, Urinating - Review of Systems Gastrointestinal: Reports: Other (Complains of right groin pain with activity.) - Patient Data Vitals - Most Recent: Last Vital Signs Temp 36.7 C 09/05/17 09:19 Pulse 90 09/05/17 09:19 Resp 18 09/05/17 09:19 BP 109/69 09/05/17 09:19 Pulse Ox 92 L 09/05/17 09:19 Weight - Most Recent: 105.551 kg I&O - Last 24 Hours: Intake & Output 09/04/17 09/05/17 09/05/17 22:59 06:59 14:59 Intake Total 360 850 Output Total 2000 Balance 360 -1150 Lab Results Last 24 Hrs: Laboratory Results - last 24 hr 09/04/17 Range/Units 16:35 Urine Color Yellow (Yellow) Urine Appearance Clear (Clear) Urine pH 6.0 (5.0-8.0) Ur Specific [place] 1.020 (1.005-1.030) Urine Protein Negative (Negative) Urine Glucose (UA) Negative (Negative) Urine Ketones Negative (Negative) Urine Occult Blood Trace-intact H (Negative) Urine Nitrite Negative (Negative) Urine Bilirubin Negative (Negative) Urine Urobilinogen 0.2 (0.2-1.0) Ur Leukocyte Esterase Negative (Negative) Urine RBC Not seen (0-5) /hpf Urine WBC 0-5 (0-5) /hpf Ur Epithelial Cells 0-5 (0-5) /hpf Urine Bacteria Not seen (FEW) /hpf Urine Mucus Not seen (FEW) /hpf Med Orders - Current: Current Medications Acetaminophen (Tylenol) 650 mg PO Q6H PRN PRN Reason: Pain Aspirin (Aspirin) 81 mg PO DAILY [facility] Last Admin: 09/05/17 09:15 Dose: 81 mg Cyclobenzaprine HCl (Flexeril) 10 mg PO TID PRN PRN Reason: Spasms Last Admin: 09/05/17 05:15 Dose: 10 mg Hydromorphone HCl (Dilaudid) 0.5 mg IVPUSH Q1H PRN PRN Reason: Pain (severe 7-10) Last Admin: 09/04/17 21:19 Dose: 0.5 mg Sodium Chloride (Normal Saline) 1,000 mls @ 125 mls/hr IV ASDIRECTED [facility] Last Admin: 09/04/17 12:39 Dose: 125 mls/hr Cefoxitin Sodium 2 gm/ Premix 50 mls @ 100 mls/hr IV Q8H [facility] Last Admin: 09/05/17 06:52 Dose: 100 mls/hr Vancomycin HCl 1 gm/Vancomycin HCl 500 mg/ Sodium Chloride 500 mls @ 333 mls/ hr IV Q12H [facility] Nitroglycerin (Nitrostat) 0.4 mg SL ASDIRECTED [facility] Ondansetron HCl (Zofran) 4 mg IVPUSH Q8H PRN PRN Reason: Nausea/Vomiting Oxycodone/Acetaminophen (Percocet 325-5 Mg) 1 tab PO Q6HR PRN PRN Reason: Pain Pantoprazole Sodium (Protonix) 40 mg PO BIDAC [facility] Last Admin: 09/05/17 05:15 Dose: 40 mg Simvastatin (Zocor) 20 mg PO BEDTIME [facility] Sodium Chloride (Saline Flush) 10 ml FLUSH ASDIRECTED PRN PRN Reason: Keep Vein Open Last Admin: 09/04/17 12:40 Dose: 10 ml Sodium Chloride (Saline Flush) 10 ml FLUSH ONETIME PRN PRN Reason: IV FLUSH Last Admin: 09/04/17 13:43 Dose: 10 ml Sodium Chloride (Saline Flush) 10 ml FLUSH ASDIRECTED PRN PRN Reason: Keep Vein Open Discontinued Medications Hydrocodone Bitart/Acetaminophen ([place] 325-5 Mg) 1 tab PO ASDIRECTED PRN PRN Reason: Pain Diatrizoate Meglum/Diatrizoate Sod (Gastrografin 37%) 120 ml PO ONETIME ONE Stop: 09/04/17 12:32 Last Admin: 09/04/17 13:42 Dose: 90 ml Fentanyl (Sublimaze) 50 mcg IVPUSH ONETIME ONE Stop: 09/04/17 13:53 Last Admin: 09/04/17 14:02 Dose: 50 mcg Cefoxitin Sodium 2 gm/ Sodium (Chloride) 100 mls @ 200 mls/hr IV ONETIME ONE Stop: 09/04/17 15:25 Vancomycin HCl 1.5 gm/ Sodium (Chloride) 250 mls @ 250 mls/hr IV ONETIME ONE Stop: 09/04/17 15:55 Cefoxitin Sodium 2 gm/ Premix 50 mls @ 100 mls/hr IV ONETIME [facility] Last Admin: 09/04/17 15:23 Dose: 100 mls/hr Vancomycin HCl 1 gm/Vancomycin HCl 500 mg/ Sodium Chloride 500 mls @ 500 mls/ hr IV ONETIME ONE Stop: 09/04/17 16:14 Last Admin: 09/04/17 15:50 Dose: 500 mls/hr Vancomycin HCl 1 gm/Vancomycin HCl 500 mg/ Sodium Chloride 500 mls @ 333 mls/ hr IV Q12HR [facility] Last Admin: 09/05/17 09:42 Dose: Not Given Iopamidol (Isovue-300 (61%)) 150 ml IVPUSH ONETIME ONE Stop: 09/04/17 12:32 Last Admin: 09/04/17 13:42 Dose: 125 ml Pneumococcal Polyvalent Vaccine (Pneumovax 23) 0.5 ml IM .ONCE ONE Stop: 09/04/17 17:00 - Exam GI/Abdominal Exam: Other (Swelling at the base of the penis secondary to edema. No cellulitis warmth or induration at the surgery site) - Problem List & Annotations (1) Postoperative pain, acute, groin SNOMED Code(s): 041565087 Code(s): R10.30 - LOWER ABDOMINAL PAIN, UNSPECIFIED; G89.18 - OTHER ACUTE POSTPROCEDURAL PAIN Status: Acute Priority: Medium Current Visit: Yes Qualifiers: Laterality: right Qualified Code(s): R10.31 - Right lower quadrant pain; G89.18 - Other acute postprocedural pain; G89.18 - Other acute postprocedural pain - Problem List Review Problem List Initiated/Reviewed/Updated: Yes - My Orders Last 24 Hours: Active Orders 24 hr Category Date Time Status Patient Status [ADT] Routine ADT 09/04/17 16:08 Active Bedrest Bathroom Privileges [RC] ASDIRECTED Care 09/04/17 17:00 Active Communication Order [RC] ROUTINE Care 09/04/17 21:21 Active Oxygen Therapy [RC] ASDIRECTED Care 09/04/17 17:01 Active Regular Diet [DIET] Diet 09/04/17 Dinner Active VANCOMYCIN TROUGH [CHEM] Timed Lab 09/06/17 02:30 Ordered Acetaminophen [Tylenol] Med 09/04/17 21:25 Active 650 mg PO Q6H PRN Acetaminophen/oxyCODONE [Percocet 325-5 MG] Med 09/04/17 21:19 Active 1 tab PO Q6HR PRN Aspirin Med 09/05/17 09:00 Active 81 mg PO DAILY Cyclobenzaprine [Flexeril] Med 09/04/17 21:18 Active 10 mg PO TID PRN HYDROmorphone [Dilaudid] Med 09/04/17 17:02 Active 0.5 mg IVPUSH Q1H PRN Nitroglycerin [Nitrostat] Med 09/04/17 21:30 Active 0.4 mg SL ASDIRECTED Ondansetron [Zofran] Med 09/04/17 17:03 Active 4 mg IVPUSH Q8H PRN Pantoprazole [ProTONIX] Med 09/05/17 06:00 Active 40 mg PO BIDAC Simvastatin [Zocor] Med 09/05/17 21:00 Active 20 mg PO BEDTIME Sodium Chloride 0.9% [Saline Flush] Med 09/04/17 21:18 Active 10 ml FLUSH ASDIRECTED PRN Vancomycin 1 gm Med 09/05/17 15:00 Active Vancomycin 500 mg Sodium Chloride 0.9% [Normal Saline] 500 ml IV Q12H cefOXitin [Mefoxin in Dextrose,Iso-Osm 2 GM/50 ML] 2 gm Med 09/04/17 23:00 Active Premix Bag 1 bag IV Q8H Convert IV to Saline Lock [OM.PC] Routine Oth 09/04/17 21:18 Ordered Code Status [Resuscitation Status] Routine Resus Stat 09/04/17 16:59 Ordered Medication Orders Acetaminophen (Tylenol) 650 mg PO Q6H PRN PRN Reason: Pain Aspirin (Aspirin) 81 mg PO DAILY [facility] Last Admin: 09/05/17 09:15 Dose: 81 mg Cyclobenzaprine HCl (Flexeril) 10 mg PO TID PRN PRN Reason: Spasms Last Admin: 09/05/17 05:15 Dose: 10 mg Hydromorphone HCl (Dilaudid) 0.5 mg IVPUSH Q1H PRN PRN Reason: Pain (severe 7-10) Last Admin: 09/04/17 21:19 Dose: 0.5 mg Admin: 09/04/17 17:36 Dose: 0.5 mg Sodium Chloride (Normal Saline) 1,000 mls @ 125 mls/hr IV ASDIRECTED [facility] Last Admin: 09/04/17 12:39 Dose: 125 mls/hr Cefoxitin Sodium 2 gm/ Premix 50 mls @ 100 mls/hr IV Q8H [facility] Last Admin: 09/05/17 06:52 Dose: 100 mls/hr Infusion: 09/04/17 23:50 Dose: 100 mls/hr Admin: 09/04/17 23:20 Dose: 100 mls/hr Vancomycin HCl 1 gm/Vancomycin HCl 500 mg/ Sodium Chloride 500 mls @ 333 mls/ hr IV Q12H [facility] Nitroglycerin (Nitrostat) 0.4 mg SL ASDIRECTED [facility] Ondansetron HCl (Zofran) 4 mg IVPUSH Q8H PRN PRN Reason: Nausea/Vomiting Oxycodone/Acetaminophen (Percocet 325-5 Mg) 1 tab PO Q6HR PRN PRN Reason: Pain Pantoprazole Sodium (Protonix) 40 mg PO BIDAC [facility] Last Admin: 09/05/17 05:15 Dose: 40 mg Simvastatin (Zocor) 20 mg PO BEDTIME [facility] Sodium Chloride (Saline Flush) 10 ml FLUSH ASDIRECTED PRN PRN Reason: Keep Vein Open Last Admin: 09/04/17 12:40 Dose: 10 ml Sodium Chloride (Saline Flush) 10 ml FLUSH ONETIME PRN PRN Reason: IV FLUSH Last Admin: 09/04/17 13:43 Dose: 10 ml Sodium Chloride (Saline Flush) 10 ml FLUSH ASDIRECTED PRN PRN Reason: Keep Vein Open - Assessment Assessment (Free Text/Narrative):: imp: Still believe this is most likely severe postoperative pain probably because of too much tension from the repair. - Plan Plan (Free Text/Narrative):: IV analgesics and antibiotics for 48 hours of observation.
[2017-09-05] MEDS: Acetaminophen/oxyCODONE 325-5 MG Tab PO PRN ×2 (11:18→19:44)
[2017-09-05] MEDS: Simvastatin 20 MG Tab PO SCH (21:34)
[2017-09-06] MEDS: Vancomycin 1 GM, Vancomycin 500 MG in Sodium Chloride 0.9% 500 ML IV SCH ×2 (04:16→16:07)
[2017-09-06] MEDS: Pantoprazole 40 MG Tab.CR PO SCH ×2 (06:14→15:31)
[2017-09-06] MEDS: cefOXitin 2 GM in Premix Bag 1 BAG IV SCH ×3 (07:01→22:15)
[2017-09-06] MEDS: Aspirin 81 MG Tab.Chew PO SCH (08:03)
--- NOTE | 2017-09-06 11:45 | PCM.SURGPN ---
- General Info Date of Service: 09/06/17 Functional Status: Reports: Pain Controlled, Tolerating Diet, Ambulating, Urinating, Other (Feels much better today. Rates pain of 1-2/10. Wants to go home.) - Patient Data Vitals - Most Recent: Last Vital Signs Temp 36.6 C 09/06/17 08:03 Pulse 70 09/06/17 08:03 Resp 15 09/06/17 08:03 BP 126/79 09/06/17 08:03 Pulse Ox 96 09/06/17 08:03 Weight - Most Recent: 105.097 kg I&O - Last 24 Hours: Intake & Output 09/05/17 09/06/17 09/06/17 22:59 06:59 14:59 Intake Total 1900 850 0 Output Total 1500 850 Balance 400 0 0 Lab Results Last 24 Hrs: Laboratory Results - last 24 hr 09/06/17 Range/Units 02:35 Vancomycin Trough 10.4 (10.0-20.0) Med Orders - Current: Current Medications Acetaminophen (Tylenol) 650 mg PO Q6H PRN PRN Reason: Pain Aspirin (Aspirin) 81 mg PO DAILY [facility] Last Admin: 09/06/17 08:03 Dose: 81 mg Cyclobenzaprine HCl (Flexeril) 10 mg PO TID PRN PRN Reason: Spasms Last Admin: 09/05/17 05:15 Dose: 10 mg Hydromorphone HCl (Dilaudid) 0.5 mg IVPUSH Q1H PRN PRN Reason: Pain (severe 7-10) Last Admin: 09/04/17 21:19 Dose: 0.5 mg Cefoxitin Sodium 2 gm/ Premix 50 mls @ 100 mls/hr IV Q8H [facility] Last Admin: 09/06/17 07:01 Dose: 100 mls/hr Vancomycin HCl 1 gm/Vancomycin HCl 500 mg/ Sodium Chloride 500 mls @ 333 mls/ hr IV Q12H [facility] Last Admin: 09/06/17 04:16 Dose: 333 mls/hr Nitroglycerin (Nitrostat) 0.4 mg SL ASDIRECTED [facility] Ondansetron HCl (Zofran) 4 mg IVPUSH Q8H PRN PRN Reason: Nausea/Vomiting Oxycodone/Acetaminophen (Percocet 325-5 Mg) 1 tab PO Q6HR PRN PRN Reason: Pain Last Admin: 09/05/17 19:44 Dose: 1 tab Pantoprazole Sodium (Protonix) 40 mg PO BIDAC [facility] Last Admin: 09/06/17 06:14 Dose: 40 mg Simvastatin (Zocor) 20 mg PO BEDTIME [facility] Last Admin: 09/05/17 21:34 Dose: 20 mg Sodium Chloride (Saline Flush) 10 ml FLUSH ASDIRECTED PRN PRN Reason: Keep Vein Open Last Admin: 09/04/17 12:40 Dose: 10 ml Sodium Chloride (Saline Flush) 10 ml FLUSH ONETIME PRN PRN Reason: IV FLUSH Last Admin: 09/04/17 13:43 Dose: 10 ml Sodium Chloride (Saline Flush) 10 ml FLUSH ASDIRECTED PRN PRN Reason: Keep Vein Open Discontinued Medications Hydrocodone Bitart/Acetaminophen ([place] 325-5 Mg) 1 tab PO ASDIRECTED PRN PRN Reason: Pain Diatrizoate Meglum/Diatrizoate Sod (Gastrografin 37%) 120 ml PO ONETIME ONE Stop: 09/04/17 12:32 Last Admin: 09/04/17 13:42 Dose: 90 ml Fentanyl (Sublimaze) 50 mcg IVPUSH ONETIME ONE Stop: 09/04/17 13:53 Last Admin: 09/04/17 14:02 Dose: 50 mcg Sodium Chloride (Normal Saline) 1,000 mls @ 125 mls/hr IV ASDIRECTED [facility] Last Admin: 09/04/17 12:39 Dose: 125 mls/hr Cefoxitin Sodium 2 gm/ Sodium (Chloride) 100 mls @ 200 mls/hr IV ONETIME ONE Stop: 09/04/17 15:25 Vancomycin HCl 1.5 gm/ Sodium (Chloride) 250 mls @ 250 mls/hr IV ONETIME ONE Stop: 09/04/17 15:55 Cefoxitin Sodium 2 gm/ Premix 50 mls @ 100 mls/hr IV ONETIME [facility] Last Admin: 09/04/17 15:23 Dose: 100 mls/hr Vancomycin HCl 1 gm/Vancomycin HCl 500 mg/ Sodium Chloride 500 mls @ 500 mls/ hr IV ONETIME ONE Stop: 09/04/17 16:14 Last Admin: 09/04/17 15:50 Dose: 500 mls/hr Vancomycin HCl 1 gm/Vancomycin HCl 500 mg/ Sodium Chloride 500 mls @ 333 mls/ hr IV Q12HR [facility] Last Admin: 09/05/17 09:42 Dose: Not Given Iopamidol (Isovue-300 (61%)) 150 ml IVPUSH ONETIME ONE Stop: 09/04/17 12:32 Last Admin: 09/04/17 13:42 Dose: 125 ml Pneumococcal Polyvalent Vaccine (Pneumovax 23) 0.5 ml IM .ONCE ONE Stop: 09/04/17 17:00 - Exam General: Alert, Oriented GI/Abdominal Exam: Other (Less tender in the right groin area.) - Problem List & Annotations (1) Postoperative pain, acute, groin SNOMED Code(s): 424914190 Code(s): R10.30 - LOWER ABDOMINAL PAIN, UNSPECIFIED; G89.18 - OTHER ACUTE POSTPROCEDURAL PAIN Status: Acute Priority: Medium Current Visit: Yes Qualifiers: Laterality: right Qualified Code(s): R10.31 - Right lower quadrant pain; G89.18 - Other acute postprocedural pain; G89.18 - Other acute postprocedural pain - Problem List Review Problem List Initiated/Reviewed/Updated: Yes - My Orders Last 24 Hours: Active Orders 24 hr Category Date Time Status Simvastatin [Zocor] Med 09/05/17 21:00 Active 20 mg PO BEDTIME Vancomycin 1 gm Med 09/05/17 15:00 Active Vancomycin 500 mg Sodium Chloride 0.9% [Normal Saline] 500 ml IV Q12H Medication Orders Acetaminophen (Tylenol) 650 mg PO Q6H PRN PRN Reason: Pain Aspirin (Aspirin) 81 mg PO DAILY [facility] Last Admin: 09/06/17 08:03 Dose: 81 mg Admin: 09/05/17 09:15 Dose: 81 mg Cyclobenzaprine HCl (Flexeril) 10 mg PO TID PRN PRN Reason: Spasms Last Admin: 09/05/17 05:15 Dose: 10 mg Hydromorphone HCl (Dilaudid) 0.5 mg IVPUSH Q1H PRN PRN Reason: Pain (severe 7-10) Last Admin: 09/04/17 21:19 Dose: 0.5 mg Admin: 09/04/17 17:36 Dose: 0.5 mg Cefoxitin Sodium 2 gm/ Premix 50 mls @ 100 mls/hr IV Q8H [facility] Last Admin: 09/06/17 07:01 Dose: 100 mls/hr Infusion: 09/05/17 22:51 Dose: 100 mls/hr Admin: 09/05/17 22:21 Dose: 100 mls/hr Infusion: 09/05/17 15:18 Dose: 100 mls/hr Admin: 09/05/17 14:48 Dose: 100 mls/hr Infusion: 09/05/17 07:22 Dose: 100 mls/hr Admin: 09/05/17 06:52 Dose: 100 mls/hr Infusion: 09/04/17 23:50 Dose: 100 mls/hr Admin: 09/04/17 23:20 Dose: 100 mls/hr Vancomycin HCl 1 gm/Vancomycin HCl 500 mg/ Sodium Chloride 500 mls @ 333 mls/ hr IV Q12H [facility] Last Admin: 09/06/17 04:16 Dose: 333 mls/hr Infusion: 09/05/17 17:33 Dose: 333 mls/hr Admin: 09/05/17 16:02 Dose: 333 mls/hr Nitroglycerin (Nitrostat) 0.4 mg SL ASDIRECTED [facility] Ondansetron HCl (Zofran) 4 mg IVPUSH Q8H PRN PRN Reason: Nausea/Vomiting Oxycodone/Acetaminophen (Percocet 325-5 Mg) 1 tab PO Q6HR PRN PRN Reason: Pain Last Admin: 09/05/17 19:44 Dose: 1 tab Admin: 09/05/17 11:18 Dose: 1 tab Pantoprazole Sodium (Protonix) 40 mg PO BIDAC [facility] Last Admin: 09/06/17 06:14 Dose: 40 mg Admin: 09/05/17 16:02 Dose: 40 mg Admin: 09/05/17 05:15 Dose: 40 mg Simvastatin (Zocor) 20 mg PO BEDTIME [facility] Last Admin: 09/05/17 21:34 Dose: 20 mg Sodium Chloride (Saline Flush) 10 ml FLUSH ASDIRECTED PRN PRN Reason: Keep Vein Open Last Admin: 09/04/17 12:40 Dose: 10 ml Sodium Chloride (Saline Flush) 10 ml FLUSH ONETIME PRN PRN Reason: IV FLUSH Last Admin: 09/04/17 13:43 Dose: 10 ml Sodium Chloride (Saline Flush) 10 ml FLUSH ASDIRECTED PRN PRN Reason: Keep Vein Open - Assessment Assessment (Free Text/Narrative):: imp: Resolving postop pain. Possible early wound infection improving with antibiotics. plan: 1 more day of IV antibiotics and then probable discharge tomorrow.
[2017-09-06] MEDS: Acetaminophen/oxyCODONE 325-5 MG Tab PO PRN (13:13)
[2017-09-06] MEDS: Simvastatin 20 MG Tab PO SCH (22:15)
[2017-09-07] MEDS: Vancomycin 1 GM, Vancomycin 500 MG in Sodium Chloride 0.9% 500 ML IV SCH (03:26)
[2017-09-07 04:31] VITALS: BP 122/78
[2017-09-07] MEDS: cefOXitin 2 GM in Premix Bag 1 BAG IV SCH (06:29)
[2017-09-07] MEDS: Pantoprazole 40 MG Tab.CR PO SCH (06:30)
--- NOTE | 2017-09-07 08:03 | PCM.SURGPN ---
- General Info Date of Service: 09/07/17 Functional Status: Reports: Pain Controlled, Tolerating Diet, Ambulating, Urinating - Patient Data Vitals - Most Recent: Last Vital Signs Temp 36.7 C 09/06/17 22:14 Pulse 73 09/07/17 04:00 Resp 14 09/07/17 04:00 BP 122/78 09/07/17 04:00 Pulse Ox 96 09/07/17 04:00 Weight - Most Recent: 105.415 kg I&O - Last 24 Hours: Intake & Output 09/06/17 09/07/17 09/07/17 22:59 06:59 14:59 Intake Total 950 800 Output Total 2100 Balance -1150 800 Lab Results Last 24 Hrs: Laboratory Results - last 24 hr 09/07/17 Range/Units 05:30 WBC 8.69 (4.23-9.07) K/mm3 RBC 4.22 L (4.63-6.08) M/mm3 Hgb 12.8 L (13.7-17.5) gm/L Hct 37.5 L (40.1-51.0) % MCV 88.9 (79.0-92.2) fl MCH 30.3 (25.7-32.2) pg MCHC 34.1 (32.2-35.5) g/dl RDW Std Deviation 41.4 (35.1-43.9) fL Plt Count 282 (163-337) K/mm3 MPV 10.2 (9.4-12.3) fl Neut % (Auto) 64.5 (34.0-67.9) % Lymph % (Auto) 21.5 L (21.8-53.1) % [place] % (Auto) 7.9 (5.3-12.2) % Eos % (Auto) 5.5 (0.8-7.0) Baso % (Auto) 0.6 (0.1-1.2) % Neut # (Auto) 5.60 H (1.78-5.38) K/mm3 Lymph # (Auto) 1.87 (1.32-3.57) K/mm3 [place] # (Auto) 0.69 (0.30-0.82) K/mm3 Eos # (Auto) 0.48 (0.04-0.54) K/mm3 Baso # (Auto) 0.05 (0.01-0.08) K/mm3 Med Orders - Current: Current Medications Acetaminophen (Tylenol) 650 mg PO Q6H PRN PRN Reason: Pain Aspirin (Aspirin) 81 mg PO DAILY [facility] Last Admin: 09/06/17 08:03 Dose: 81 mg Cyclobenzaprine HCl (Flexeril) 10 mg PO TID PRN PRN Reason: Spasms Last Admin: 09/05/17 05:15 Dose: 10 mg Hydromorphone HCl (Dilaudid) 0.5 mg IVPUSH Q1H PRN PRN Reason: Pain (severe 7-10) Last Admin: 09/04/17 21:19 Dose: 0.5 mg Cefoxitin Sodium 2 gm/ Premix 50 mls @ 100 mls/hr IV Q8H [facility] Last Admin: 09/07/17 06:29 Dose: 100 mls/hr Vancomycin HCl 1 gm/Vancomycin HCl 500 mg/ Sodium Chloride 500 mls @ 333 mls/ hr IV Q12H [facility] Last Admin: 09/07/17 03:26 Dose: 333 mls/hr Nitroglycerin (Nitrostat) 0.4 mg SL ASDIRECTED [facility] Ondansetron HCl (Zofran) 4 mg IVPUSH Q8H PRN PRN Reason: Nausea/Vomiting Oxycodone/Acetaminophen (Percocet 325-5 Mg) 1 tab PO Q6HR PRN PRN Reason: Pain Last Admin: 09/06/17 13:13 Dose: 1 tab Pantoprazole Sodium (Protonix) 40 mg PO BIDAC [facility] Last Admin: 09/07/17 06:30 Dose: 40 mg Simvastatin (Zocor) 20 mg PO BEDTIME [facility] Last Admin: 09/06/17 22:15 Dose: 20 mg Sodium Chloride (Saline Flush) 10 ml FLUSH ASDIRECTED PRN PRN Reason: Keep Vein Open Last Admin: 09/04/17 12:40 Dose: 10 ml Sodium Chloride (Saline Flush) 10 ml FLUSH ONETIME PRN PRN Reason: IV FLUSH Last Admin: 09/04/17 13:43 Dose: 10 ml Sodium Chloride (Saline Flush) 10 ml FLUSH ASDIRECTED PRN PRN Reason: Keep Vein Open Discontinued Medications Hydrocodone Bitart/Acetaminophen ([place] 325-5 Mg) 1 tab PO ASDIRECTED PRN PRN Reason: Pain Diatrizoate Meglum/Diatrizoate Sod (Gastrografin 37%) 120 ml PO ONETIME ONE Stop: 09/04/17 12:32 Last Admin: 09/04/17 13:42 Dose: 90 ml Fentanyl (Sublimaze) 50 mcg IVPUSH ONETIME ONE Stop: 09/04/17 13:53 Last Admin: 09/04/17 14:02 Dose: 50 mcg Sodium Chloride (Normal Saline) 1,000 mls @ 125 mls/hr IV ASDIRECTED [facility] Last Admin: 09/04/17 12:39 Dose: 125 mls/hr Cefoxitin Sodium 2 gm/ Sodium (Chloride) 100 mls @ 200 mls/hr IV ONETIME ONE Stop: 09/04/17 15:25 Vancomycin HCl 1.5 gm/ Sodium (Chloride) 250 mls @ 250 mls/hr IV ONETIME ONE Stop: 09/04/17 15:55 Cefoxitin Sodium 2 gm/ Premix 50 mls @ 100 mls/hr IV ONETIME [facility] Last Admin: 09/04/17 15:23 Dose: 100 mls/hr Vancomycin HCl 1 gm/Vancomycin HCl 500 mg/ Sodium Chloride 500 mls @ 500 mls/ hr IV ONETIME ONE Stop: 09/04/17 16:14 Last Admin: 09/04/17 15:50 Dose: 500 mls/hr Vancomycin HCl 1 gm/Vancomycin HCl 500 mg/ Sodium Chloride 500 mls @ 333 mls/ hr IV Q12HR [facility] Last Admin: 09/05/17 09:42 Dose: Not Given Iopamidol (Isovue-300 (61%)) 150 ml IVPUSH ONETIME ONE Stop: 09/04/17 12:32 Last Admin: 09/04/17 13:42 Dose: 125 ml Pneumococcal Polyvalent Vaccine (Pneumovax 23) 0.5 ml IM .ONCE ONE Stop: 09/04/17 17:00 - Exam Wound/Incisions: Healing Well, Other (No erythema edema from surgery subsiding no ecchymoses no hematoma no induration) - Problem List & Annotations (1) Postoperative pain, acute, groin SNOMED Code(s): 976452377 Code(s): R10.30 - LOWER ABDOMINAL PAIN, UNSPECIFIED; G89.18 - OTHER ACUTE POSTPROCEDURAL PAIN Status: Acute Priority: Medium Current Visit: Yes Qualifiers: Laterality: right Qualified Code(s): R10.31 - Right lower quadrant pain; G89.18 - Other acute postprocedural pain; G89.18 - Other acute postprocedural pain - Problem List Review Problem List Initiated/Reviewed/Updated: Yes - My Orders Last 24 Hours: Active Orders 24 hr Category Date Time Status Ready for Discharge [RC] PER UNIT ROUTINE Care 09/07/17 08:01 Ordered Assess Discharge Needs [OM.PC] Routine Oth 09/07/17 08:00 Ordered Medication Orders Acetaminophen (Tylenol) 650 mg PO Q6H PRN PRN Reason: Pain Aspirin (Aspirin) 81 mg PO DAILY [facility] Last Admin: 09/06/17 08:03 Dose: 81 mg Admin: 09/05/17 09:15 Dose: 81 mg Cyclobenzaprine HCl (Flexeril) 10 mg PO TID PRN PRN Reason: Spasms Last Admin: 09/05/17 05:15 Dose: 10 mg Hydromorphone HCl (Dilaudid) 0.5 mg IVPUSH Q1H PRN PRN Reason: Pain (severe 7-10) Last Admin: 09/04/17 21:19 Dose: 0.5 mg Admin: 09/04/17 17:36 Dose: 0.5 mg Cefoxitin Sodium 2 gm/ Premix 50 mls @ 100 mls/hr IV Q8H [facility] Last Admin: 09/07/17 06:29 Dose: 100 mls/hr Infusion: 09/06/17 22:45 Dose: 100 mls/hr Admin: 09/06/17 22:15 Dose: 100 mls/hr Infusion: 09/06/17 16:00 Dose: 100 mls/hr Admin: 09/06/17 15:30 Dose: 100 mls/hr Infusion: 09/06/17 07:31 Dose: 100 mls/hr Admin: 09/06/17 07:01 Dose: 100 mls/hr Infusion: 09/05/17 22:51 Dose: 100 mls/hr Admin: 09/05/17 22:21 Dose: 100 mls/hr Infusion: 09/05/17 15:18 Dose: 100 mls/hr Admin: 09/05/17 14:48 Dose: 100 mls/hr Infusion: 09/05/17 07:22 Dose: 100 mls/hr Admin: 09/05/17 06:52 Dose: 100 mls/hr Infusion: 09/04/17 23:50 Dose: 100 mls/hr Admin: 09/04/17 23:20 Dose: 100 mls/hr Vancomycin HCl 1 gm/Vancomycin HCl 500 mg/ Sodium Chloride 500 mls @ 333 mls/ hr IV Q12H [facility] Last Admin: 09/07/17 03:26 Dose: 333 mls/hr Infusion: 09/06/17 17:38 Dose: 333 mls/hr Admin: 09/06/17 16:07 Dose: 333 mls/hr Infusion: 09/06/17 05:47 Dose: 333 mls/hr Admin: 09/06/17 04:16 Dose: 333 mls/hr Infusion: 09/05/17 17:33 Dose: 333 mls/hr Admin: 09/05/17 16:02 Dose: 333 mls/hr Nitroglycerin (Nitrostat) 0.4 mg SL ASDIRECTED JAVAN Ondansetron HCl (Zofran) 4 mg IVPUSH Q8H PRN PRN Reason: Nausea/Vomiting Oxycodone/Acetaminophen (Percocet 325-5 Mg) 1 tab PO Q6HR PRN PRN Reason: Pain Last Admin: 09/06/17 13:13 Dose: 1 tab Admin: 09/05/17 19:44 Dose: 1 tab Admin: 09/05/17 11:18 Dose: 1 tab Pantoprazole Sodium (Protonix) 40 mg PO BIDAC [facility] Last Admin: 09/07/17 06:30 Dose: 40 mg Admin: 09/06/17 15:31 Dose: 40 mg Admin: 09/06/17 06:14 Dose: 40 mg Admin: 09/05/17 16:02 Dose: 40 mg Admin: 09/05/17 05:15 Dose: 40 mg Simvastatin (Zocor) 20 mg PO BEDTIME [facility] Last Admin: 09/06/17 22:15 Dose: 20 mg Admin: 09/05/17 21:34 Dose: 20 mg Sodium Chloride (Saline Flush) 10 ml FLUSH ASDIRECTED PRN PRN Reason: Keep Vein Open Last Admin: 09/04/17 12:40 Dose: 10 ml Sodium Chloride (Saline Flush) 10 ml FLUSH ONETIME PRN PRN Reason: IV FLUSH Last Admin: 09/04/17 13:43 Dose: 10 ml Sodium Chloride (Saline Flush) 10 ml FLUSH ASDIRECTED PRN PRN Reason: Keep Vein Open - Assessment Assessment (Free Text/Narrative):: Ready for discharge - Plan Plan (Free Text/Narrative):: Plan discharge today after having satisfied all criteria. I will continue him on Bactrim DS by mouth twice a day for 5 more days. He'll follow with me in one week.
--- NOTE | 2017-09-07 08:10 | PCM.DCSUM1 ---
Discharge Summary - Hospital Course Free Text/Narrative:: Rapid improvement with analgesics and IV antibiotics - Discharge Data Discharge Date: 09/07/17 Discharge Disposition: Home, Self-Care 01 Condition: Good - Discharge Diagnosis/Problem(s) (1) Postoperative pain, acute, groin SNOMED Code(s): 760737846 ICD Code: R10.30 - LOWER ABDOMINAL PAIN, UNSPECIFIED; G89.18 - OTHER ACUTE POSTPROCEDURAL PAIN Status: Acute Priority: Medium Current Visit: Yes Qualifiers: Laterality: right Qualified Code(s): R10.31 - Right lower quadrant pain; G89.18 - Other acute postprocedural pain; G89.18 - Other acute postprocedural pain - Patient Summary/Data Complications: None Labs Pending at D/C: None - Patient Instructions Diet: Usual Diet as Tolerated Activity: No Lifting Over 20 Pounds, Rest and Relax Today Driving: May Drive Today Showering/Bathing: May Shower Wound/Incision Care: Keep Operative Site/Wound Site Clean and Dry Notify Provider of: Fever, Increased Pain, Swelling and Redness - Discharge Plan Home Medications: Home Meds Aspirin 81 mg PO DAILY #30 tab.chew 07/06/16 [Rx] Nitroglycerin 0.4 mg SL ASDIRECTED #12 tab.subl 07/06/16 [Rx] Pravastatin Sodium [Pravastatin (Pravachol)] 40 mg PO DAILY #30 tablet 07/06/16 [Rx] Acetaminophen [Tylenol Arthritis] 650 mg PO ASDIRECTED PRN 08/28/17 [History] Omeprazole 20 mg PO BID 08/31/17 [History] Hydrocodone/Acetaminophen [Hydrocodon-Acetaminophen 5-325] 1 tab PO ASDIRECTED PRN 09/01/17 [History] oxyCODONE HCl/Acetaminophen [oxyCODONE-Acetaminophen 5-325] 1 tab PO Q6HR PRN [History] Patient Handouts: Smoking Hazards, Cellulitis, Adult, [id number], Smoking Cessation, Tips for Success Forms: ED Department Discharge Referrals: Son Taylor PA-C [Physician Wafer Fabricator] - PCP,None [Primary Care Provider] - Lester Segovia MD [Physician] - 09/14/17 (Postoperative check) - Discharge Summary/Plan Comment DC Time >30 min.: No Discharge Summary/Plan Comment: Patient experienced rapid improvement after 24 hours of IV analgesics and intravenous antibiotics. Clinically he had postoperative discomfort however his white blood cell count was elevated which may be related to the surgery. But because of prosthetic material in place he was admitted for IV antibiotics presuming a possible deeper soft tissue infection. He did quite well and will be discharged on by mouth antibiotics to follow-up in my office in one week. - Patient Data Vitals - Most Recent: Last Vital Signs Temp 36.7 C 09/06/17 22:14 Pulse 73 09/07/17 04:00 Resp 14 09/07/17 04:00 BP 122/78 09/07/17 04:00 Pulse Ox 96 09/07/17 04:00 Weight - Most Recent: 105.415 kg I&O - Last 24 hours: Intake & Output 09/06/17 09/07/17 09/07/17 22:59 06:59 14:59 Intake Total 950 800 Output Total 2100 Balance -1150 800 Lab Results - Last 24 hrs: Laboratory Results - last 24 hr 09/07/17 Range/Units 05:30 WBC 8.69 (4.23-9.07) K/mm3 RBC 4.22 L (4.63-6.08) M/mm3 Hgb 12.8 L (13.7-17.5) gm/L Hct 37.5 L (40.1-51.0) % MCV 88.9 (79.0-92.2) fl MCH 30.3 (25.7-32.2) pg MCHC 34.1 (32.2-35.5) g/dl RDW Std Deviation 41.4 (35.1-43.9) fL Plt Count 282 (163-337) K/mm3 MPV 10.2 (9.4-12.3) fl Neut % (Auto) 64.5 (34.0-67.9) % Lymph % (Auto) 21.5 L (21.8-53.1) % [place] % (Auto) 7.9 (5.3-12.2) % Eos % (Auto) 5.5 (0.8-7.0) Baso % (Auto) 0.6 (0.1-1.2) % Neut # (Auto) 5.60 H (1.78-5.38) K/mm3 Lymph # (Auto) 1.87 (1.32-3.57) K/mm3 [place] # (Auto) 0.69 (0.30-0.82) K/mm3 Eos # (Auto) 0.48 (0.04-0.54) K/mm3 Baso # (Auto) 0.05 (0.01-0.08) K/mm3 Med Orders - Current: Current Medications Acetaminophen (Tylenol) 650 mg PO Q6H PRN PRN Reason: Pain Aspirin (Aspirin) 81 mg PO DAILY [facility] Last Admin: 09/06/17 08:03 Dose: 81 mg Cyclobenzaprine HCl (Flexeril) 10 mg PO TID PRN PRN Reason: Spasms Last Admin: 09/05/17 05:15 Dose: 10 mg Hydromorphone HCl (Dilaudid) 0.5 mg IVPUSH Q1H PRN PRN Reason: Pain (severe 7-10) Last Admin: 09/04/17 21:19 Dose: 0.5 mg Cefoxitin Sodium 2 gm/ Premix 50 mls @ 100 mls/hr IV Q8H [facility] Last Admin: 09/07/17 06:29 Dose: 100 mls/hr Vancomycin HCl 1 gm/Vancomycin HCl 500 mg/ Sodium Chloride 500 mls @ 333 mls/ hr IV Q12H [facility] Last Admin: 09/07/17 03:26 Dose: 333 mls/hr Nitroglycerin (Nitrostat) 0.4 mg SL ASDIRECTED [facility] Ondansetron HCl (Zofran) 4 mg IVPUSH Q8H PRN PRN Reason: Nausea/Vomiting Oxycodone/Acetaminophen (Percocet 325-5 Mg) 1 tab PO Q6HR PRN PRN Reason: Pain Last Admin: 09/06/17 13:13 Dose: 1 tab Pantoprazole Sodium (Protonix) 40 mg PO BIDAC [facility] Last Admin: 09/07/17 06:30 Dose: 40 mg Simvastatin (Zocor) 20 mg PO BEDTIME [facility] Last Admin: 09/06/17 22:15 Dose: 20 mg Sodium Chloride (Saline Flush) 10 ml FLUSH ASDIRECTED PRN PRN Reason: Keep Vein Open Last Admin: 09/04/17 12:40 Dose: 10 ml Sodium Chloride (Saline Flush) 10 ml FLUSH ONETIME PRN PRN Reason: IV FLUSH Last Admin: 09/04/17 13:43 Dose: 10 ml Sodium Chloride (Saline Flush) 10 ml FLUSH ASDIRECTED PRN PRN Reason: Keep Vein Open Discontinued Medications Hydrocodone Bitart/Acetaminophen ([place] 325-5 Mg) 1 tab PO ASDIRECTED PRN PRN Reason: Pain Diatrizoate Meglum/Diatrizoate Sod (Gastrografin 37%) 120 ml PO ONETIME ONE Stop: 09/04/17 12:32 Last Admin: 09/04/17 13:42 Dose: 90 ml Fentanyl (Sublimaze) 50 mcg IVPUSH ONETIME ONE Stop: 09/04/17 13:53 Last Admin: 09/04/17 14:02 Dose: 50 mcg Sodium Chloride (Normal Saline) 1,000 mls @ 125 mls/hr IV ASDIRECTED JAVAN Last Admin: 09/04/17 12:39 Dose: 125 mls/hr Cefoxitin Sodium 2 gm/ Sodium (Chloride) 100 mls @ 200 mls/hr IV ONETIME ONE Stop: 09/04/17 15:25 Vancomycin HCl 1.5 gm/ Sodium (Chloride) 250 mls @ 250 mls/hr IV ONETIME ONE Stop: 09/04/17 15:55 Cefoxitin Sodium 2 gm/ Premix 50 mls @ 100 mls/hr IV ONETIME [facility] Last Admin: 09/04/17 15:23 Dose: 100 mls/hr Vancomycin HCl 1 gm/Vancomycin HCl 500 mg/ Sodium Chloride 500 mls @ 500 mls/ hr IV ONETIME ONE Stop: 09/04/17 16:14 Last Admin: 09/04/17 15:50 Dose: 500 mls/hr Vancomycin HCl 1 gm/Vancomycin HCl 500 mg/ Sodium Chloride 500 mls @ 333 mls/ hr IV Q12HR [facility] Last Admin: 09/05/17 09:42 Dose: Not Given Iopamidol (Isovue-300 (61%)) 150 ml IVPUSH ONETIME ONE Stop: 09/04/17 12:32 Last Admin: 09/04/17 13:42 Dose: 125 ml Pneumococcal Polyvalent Vaccine (Pneumovax 23) 0.5 ml IM .ONCE ONE Stop: 09/04/17 17:00 *Q Meaningful Use (DIS) - VTE *Q VTE Criteria *Q: - Stroke *Q Stroke Criteria *Q: - AMI *Q AMI Criteria *Q:
[2017-09-07] MEDS: Acetaminophen/oxyCODONE 325-5 MG Tab PO PRN (08:29)
[2017-09-07] MEDS: Aspirin 81 MG Tab.Chew PO SCH (08:30)
== END 2017-09-07 09:52 | disposition home or self-care (01) | DRG 861 ==
LOC: JD.ED 12:06 → JD.MS 15:58
PROVIDERS: ADMIT Surgery; ATTEND Surgery
DX: G89.18 Other acute postprocedural pain (principal); T81.4XXA Infection following a procedure, initial encounter; E78.00 Pure hypercholesterolemia, unspecified; G47.30 Sleep apnea, unspecified; K21.9 Gastro-esophageal reflux disease without esophagitis; M19.90 Unspecified osteoarthritis, unspecified site; G89.29 Other chronic pain; M54.5 Low back pain; F41.9 Anxiety disorder, unspecified; Z79.82 Long term (current) use of aspirin; Z79.899 Other long term (current) drug therapy; F17.210 Nicotine dependence, cigarettes, uncomplicated
CPT/HCPCS: 36415; 74177; 74177-26; 80053; 80202; 81001; 83690; 85025; 87040; 96361; 96365; 96367; 96375; 99284; 99285-25; A9270-GY; J0694; J1170; J3010; J3370; J7040; J7050; Q9963; Q9967

== ENCOUNTER 2018-01-24 05:51 | Observation (INO) | payer BC ==
--- NOTE | 2018-01-24 06:05 | EDM.PDOC ---
<Jerzy Cummins - Last Filed: 01/24/18 20:36> ED HPI GENERAL MEDICAL PROBLEM - General Chief Complaint: Chest Pain Stated Complaint: CHEST PAINS Time Seen by Provider: 01/24/18 06:05 - Related Data Allergies Allergy/AdvReac Type Severity Reaction Status Date / Time No Known Allergies Allergy Verified 01/24/18 06:04 Home Meds: Home Meds Aspirin 81 mg PO DAILY #30 tab.chew 07/06/16 [Rx] Nitroglycerin 0.4 mg SL ASDIRECTED #12 tab.subl 07/06/16 [Rx] Pravastatin Sodium [Pravastatin (Pravachol)] 40 mg PO DAILY #30 tablet 07/06/16 [Rx] Omeprazole 20 mg PO BID 08/31/17 [History] Isosorbide Mononitrate [Imdur] 30 mg PO DAILY #30 tab.er 01/25/18 [Rx] Course - Vital Signs Last Recorded V/S: Last Vital Signs Temp 36.7 C 01/25/18 14:56 Pulse 88 01/25/18 14:27 Resp 18 01/25/18 14:27 BP 117/71 01/25/18 14:59 Pulse Ox 95 01/25/18 14:27 - Orders/Labs/Meds Labs: Laboratory Tests 01/24/18 01/24/18 01/24/18 Range/Units 06:08 06:08 08:32 WBC 7.77 (4.23-9.07) K/mm3 RBC 5.02 (4.63-6.08) M/mm3 Hgb 14.5 (13.7-17.5) gm/L Hct 43.8 (40.1-51.0) % MCV 87.3 (79.0-92.2) fl MCH 28.9 (25.7-32.2) pg MCHC 33.1 (32.2-35.5) g/dl RDW Std Deviation 41.4 (35.1-43.9) fL Plt Count 249 (163-337) K/mm3 MPV 10.7 (9.4-12.3) fl Neutrophils % (Manual) 67 H (40-60) % Band Neutrophils % 1 (0-10) % Lymphocytes % (Manual) 25 (20-40) % Atypical Lymphs % 0 % Monocytes % (Manual) 3 (2-10) % Eosinophils % (Manual) 3 (0.8-7.0) % Basophils % (Manual) 1 (0.2-1.2) Platelet Estimate Adequate RBC Morph Comment Normal Sodium 138 (136-145) mEq/L Potassium 3.9 (3.5-5.1) mEq/L Chloride 103 (98-107) mEq/L Carbon Dioxide 24 (21-32) mEq/L Anion Gap 14.9 (5-15) BUN 15 (7-18) mg/dL Creatinine 1.1 (0.7-1.3) mg/dL Est Cr Clr Drug Dosing 79.58 mL/min Estimated GFR (MDRD) > 60 (>60) mL/min BUN/Creatinine Ratio 13.6 L (14-18) Glucose 89 (74-106) mg/dL Calcium 8.7 (8.5-10.1) mg/dL Total Bilirubin 0.3 (0.2-1.0) mg/dL AST 16 (15-37) U/L ALT 15 L (16-63) U/L Alkaline Phosphatase 88 (46-116) U/L CK-MB (CK-2) 1.1 1.1 (0-3.6) ng/ml Troponin I < 0.017 < 0.017 (0.00-0.056) ng/mL Total Protein 7.2 (6.4-8.2) g/dl Albumin 3.6 (3.4-5.0) g/dl Globulin 3.6 gm/dL Albumin/Globulin Ratio 1.0 (1-2) Meds: Medications Discontinued Medications Generic Name Dose Route Start Last Admin Trade Name Braxtonq PRN Reason Stop Dose Admin Acetaminophen 650 mg 01/24/18 19:14 Tylenol RECTAL Q4H PRN Pain (mild 1-3) Aspirin 324 mg 01/24/18 06:10 01/24/18 06:19 Aspirin PO 01/24/18 06:11 324 mg ONETIME ONE Administration Aspirin 81 mg 01/25/18 09:00 01/25/18 14:59 Aspirin PO 81 mg DAILY JAVAN Administration Enoxaparin Sodium 40 mg 01/24/18 17:00 01/24/18 16:22 Lovenox SUBCUT 40 mg DAILY@1700 JAVAN Administration Nitroglycerin/Dextrose 25 mg in 250 mls @ 6 mls/hr 03/07/18 06:15 01/24/18 06 :32 Nitroglycerin 25 Mg/D5w 250 Ml IV 10 mcg/min ASDIRECTED JAVAN 6 mls/hr 10 MCG/MIN Administration Sodium Chloride 1,000 mls @ 100 mls/hr 01/24/18 06:15 01/24/18 16:25 Normal Saline IV 100 mls/hr ASDIRECTED JAVAN Administration Isosorbide Mononitrate 30 mg 01/25/18 12:00 01/25/18 14:59 Imdur PO 30 mg DAILY [facility] Administration Miscellaneous Information 0 ea 01/25/18 09:00 01/25/18 14:59 Remove Patch TRDERM Not Given DAILY [facility] Nicotine 21 mg 01/24/18 12:30 01/25/18 15:00 Habitrol TRDERM Not Given DAILY [facility] Nitroglycerin 0.4 mg 01/24/18 06:12 01/24/18 06:20 Nitrostat SL 01/24/18 06:13 0.4 mg ONETIME ONE Administration Ondansetron HCl 4 mg 01/24/18 19:14 Zofran Odt PO Q6H PRN nausea, able to take PO Ondansetron HCl 4 mg 01/24/18 19:14 Zofran IV Q6H PRN Nausea/Vomiting Pantoprazole Sodium 40 mg 01/24/18 17:00 01/25/18 06:43 Protonix PO Not Given BIDMEALS JAVAN Simvastatin 20 mg 01/25/18 09:00 01/25/18 14:59 Zocor PO 20 mg DAILY [facility] Administration - Re-Assessments/Exams Free Text/Narrative Re-Assessment/Exam: 01/24/18 09:[address] Johnson here in the ED at 09:47. She agrees to place the patient into observation. Departure - Departure Time of Disposition: 09:50 Disposition: Refer to Observation Condition: Good Clinical Impression: Chest pain <Blanco Vargas - Last Filed: 01/26/18 07:27> ED HPI GENERAL MEDICAL PROBLEM - General Source of Information: Reports: Patient History Limitations: Reports: No Limitations - History of Present Illness INITIAL COMMENTS - FREE TEXT/NARRATIVE: 57-year-old male presents the ED with complaints of sudden onset of left precordial chest pain that radiates up into the left lateral neck somewhat into his infrascapular area slightly to his left shoulder. States it came on at rest. He is headed into work today. He said similar type attacks many times in the past and usually takes a nitroglycerin tablet and they dissipate. Today he does not have any nitroglycerin with him. Patient reports about 2 years ago he had an angiogram performed which did not show any significant lesions. He did not have any stents placed. He was told there is muscle growth around one of his coronaries and that he was going to get intermittent spasm of the artery or angina. States he has not had an attack for several months. Denies cough sputum production. Denies any orthopnea or PND. No recent fever chills or flulike illness. He suffers from GERD but takes Prilosec daily and this seems to keep it in good control. He has not had to use Tums or Rolaids for several months. Burping belching does not seem to make a difference in terms of relief of pain. He has not yet eaten today. ECG done by triage nurse shows sinus rhythm at 80 per minute with no signs of ischemia. 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 He does not have his nitroglycerin tablets with him today. He has not take any aspirin yet today either.) Left Chest Pain Score (Numeric/FACES): 5 Past Medical History HEENT History: Reports: Sinusitis, Other (See Below) Other HEENT History: pharyngitis Cardiovascular History: Reports: High Cholesterol, Other (See Below) Other Cardiovascular History: cardiac catheterization, Right cornary artery muscle bundle, chest pain Respiratory History: Reports: Sleep Apnea, Other (See Below) Other Respiratory History: upper respiratory infection, cough Gastrointestinal History: Reports: GERD, Other (See Below) Other Gastrointestinal History: RLQ pain Genitourinary History: Reports: Other (See Below) Other Genitourinary History: right testicle pain, takes a while to go 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 Musculoskeletal History: Reports: Back Pain, Chronic, Osteoarthritis, Other ( See Below) Other Musculoskeletal History: low back degenerative joint disease Psychiatric History: Reports: Anxiety Endocrine/Metabolic History: Reports: None Hematologic History: Reports: None Immunologic History: Reports: None Oncologic (Cancer) History: Reports: None Dermatologic History: Reports: None - Past Surgical History Head Surgeries/Procedures: Reports: None HEENT Surgical History: Reports: Oral Surgery Other HEENT Surgeries/Procedures: compact wisdom teeth Cardiovascular Surgical History: Reports: None Respiratory Surgical History: Reports: None GI Surgical History: Reports: Hernia Repair/Other Male Surgical History: Reports: Vasectomy Other Male Surgeries/Procedures: 32 ago Endocrine Surgical History: Reports: None Neurological Surgical History: Reports: Lumbar Spine Musculoskeletal Surgical History: Reports: Arthroscopic Knee, Other (See Below) Other Musculoskeletal Surgeries/Procedures:: left elbow surgery, low back surgery, both knees done-meniscus Oncologic Surgical History: Reports: None Dermatological Surgical History: Reports: None Social & Family History - Family History Family Medical History: Noncontributory - Tobacco Use Smoking Status *Q: Current Every Day Smoker Years of Tobacco use: 45 Packs/Tins Daily: 0.5 Used Tobacco, but Quit: No Second Hand Smoke Exposure: Yes - Caffeine Use Caffeine Use: Reports: Soda Other Caffeine Use: 2-0.5 L - Alcohol Use Days Per Week of Alcohol Use: 2 Number of Drinks Per Day: 0 Total Drinks Per Week: 0 - Recreational Drug Use Recreational Drug Use: No - Living Situation & Occupation Living situation: Reports: Occupation: Employed ED ROS GENERAL - Review of Systems Review Of Systems: See Below Constitutional: Reports: No Symptoms HEENT: Reports: No Symptoms Respiratory: Reports: No Symptoms Cardiovascular: Reports: Chest Pain (See history of present illness). Denies: Blood Pressure Problem, Claudication, Dyspnea on Exertion, Edema, Lightheadedness, Orthopnea, Palpitations Endocrine: Reports: No Symptoms GI/Abdominal: Reports: Other (Has GERD well controlled with omeprazole daily.) : Reports: No Symptoms Musculoskeletal: Reports: Back Pain Skin: Reports: No Symptoms Neurological: Reports: No Symptoms (Occasional positive low back pain) Psychiatric: Reports: No Symptoms Hematologic/Lymphatic: Reports: No Symptoms Immunologic: Reports: No Symptoms ED EXAM, GENERAL - Physical Exam Exam: See Below General Appearance: Alert, WD/WN, No Apparent Distress Eye Exam: Bilateral Eye: Normal Inspection Throat/Mouth: Normal Inspection, Normal Lips, Normal Oropharynx Head: Atraumatic, Normocephalic Neck: Normal Inspection, Supple, Non-Tender, Full Range of Motion. No: Carotid Bruit, Lymphadenopathy (L), Lymphadenopathy (R) Respiratory/Chest: No Respiratory Distress, Lungs Clear, Normal Breath Sounds, No Accessory Muscle Use, Chest Non-Tender Cardiovascular: Normal Peripheral Pulses, Regular Rate, Rhythm, No Edema, No Gallop, No Murmur Peripheral Pulses: 2+: Posterior Tibial (L), Posterior Tibial (R), Dorsalis Pedis (L), Dorsalis Pedis (R) GI/Abdominal: Normal Bowel Sounds, Soft, Non-Tender, No Organomegaly, No Mass, Pelvis Stable, Other (Evidence of previous right inguinal hernia [place] with apparently mesh graft placed last year for hernia.) (Male) Exam: Other (Has a left inguinal hernia.) Back Exam: Normal Inspection, Full Range of Motion, Paraspinal Tenderness. No: CVA Tenderness (L), CVA Tenderness (R) Extremities: Normal Inspection, Normal Range of Motion, Non-Tender, No Pedal Edema Neurological: Alert, Oriented, CN II-XII Intact, Normal Cognition, Normal Gait, No Motor/Sensory Deficits Psychiatric: Normal Affect, Normal Mood Skin Exam: Warm, Dry, Intact, Normal Color, No Rash EKG INTERPRETATION EKG Date: 01/24/18 Time: 06:02 Rhythm: NSR Rate (Beats/Min): 80 [place]: Normal P-Wave: Present QRS: Normal ST-T: Normal QT: Normal EKG Interpretation Comments: Normal ECG Course - Orders/Labs/Meds Labs: Laboratory Tests 01/24/18 01/24/18 01/24/18 Range/Units 06:08 06:08 08:32 WBC 7.77 (4.23-9.07) K/mm3 RBC 5.02 (4.63-6.08) M/mm3 Hgb 14.5 (13.7-17.5) gm/L Hct 43.8 (40.1-51.0) % MCV 87.3 (79.0-92.2) fl MCH 28.9 (25.7-32.2) pg MCHC 33.1 (32.2-35.5) g/dl RDW Std Deviation 41.4 (35.1-43.9) fL Plt Count 249 (163-337) K/mm3 MPV 10.7 (9.4-12.3) fl Neutrophils % (Manual) 67 H (40-60) % Band Neutrophils % 1 (0-10) % Lymphocytes % (Manual) 25 (20-40) % Atypical Lymphs % 0 % Monocytes % (Manual) 3 (2-10) % Eosinophils % (Manual) 3 (0.8-7.0) % Basophils % (Manual) 1 (0.2-1.2) Platelet Estimate Adequate RBC Morph Comment Normal Sodium 138 (136-145) mEq/L Potassium 3.9 (3.5-5.1) mEq/L Chloride 103 (98-107) mEq/L Carbon Dioxide 24 (21-32) mEq/L Anion Gap 14.9 (5-15) BUN 15 (7-18) mg/dL Creatinine 1.1 (0.7-1.3) mg/dL Est Cr Clr Drug Dosing 79.58 mL/min Estimated GFR (MDRD) > 60 (>60) mL/min BUN/Creatinine Ratio 13.6 L (14-18) Glucose 89 (74-106) mg/dL Calcium 8.7 (8.5-10.1) mg/dL Total Bilirubin 0.3 (0.2-1.0) mg/dL AST 16 (15-37) U/L ALT 15 L (16-63) U/L Alkaline Phosphatase 88 (46-116) U/L CK-MB (CK-2) 1.1 1.1 (0-3.6) ng/ml Troponin I < 0.017 < 0.017 (0.00-0.056) ng/mL Total Protein 7.2 (6.4-8.2) g/dl Albumin 3.6 (3.4-5.0) g/dl Globulin 3.6 gm/dL Albumin/Globulin Ratio 1.0 (1-2) Meds: Medications Discontinued Medications Generic Name Dose Route Start Last Admin Trade Name Freq PRN Reason Stop Dose Admin Acetaminophen 650 mg 01/24/18 19:14 Tylenol RECTAL Q4H PRN Pain (mild 1-3) Aspirin 324 mg 01/24/18 06:10 01/24/18 06:19 Aspirin PO 01/24/18 06:11 324 mg ONETIME ONE Administration Aspirin 81 mg 01/25/18 09:00 01/25/18 14:59 Aspirin PO 81 mg DAILY [facility] Administration Enoxaparin Sodium 40 mg 01/24/18 17:00 01/24/18 16:22 Lovenox SUBCUT 40 mg DAILY@1700 JAVAN Administration Nitroglycerin/Dextrose 25 mg in 250 mls @ 6 mls/hr 01/24/18 06:15 01/24/18 06 :32 Nitroglycerin 25 Mg/D5w 250 Ml IV 10 mcg/min ASDIRECTED JAVAN 6 mls/hr 10 MCG/MIN Administration Sodium Chloride 1,000 mls @ 100 mls/hr 01/24/18 06:15 01/24/18 16:25 Normal Saline IV 100 mls/hr ASDIRECTED [facility] Administration Isosorbide Mononitrate 30 mg 01/25/18 12:00 01/25/18 14:59 Imdur PO 30 mg DAILY [facility] Administration Miscellaneous Information 0 ea 01/25/18 09:00 01/25/18 14:59 Remove Patch TRDERM Not Given DAILY [facility] Nicotine 21 mg 01/24/18 12:30 01/25/18 15:00 Habitrol TRDERM Not Given DAILY [facility] Nitroglycerin 0.4 mg 01/24/18 06:12 01/24/18 06:20 Nitrostat SL 01/24/18 06:13 0.4 mg ONETIME ONE Administration Ondansetron HCl 4 mg 01/24/18 19:14 Zofran Odt PO Q6H PRN nausea, able to take PO Ondansetron HCl 4 mg 01/24/18 19:14 Zofran IV Q6H PRN Nausea/Vomiting Pantoprazole Sodium 40 mg 01/24/18 17:00 01/25/18 06:43 Protonix PO Not Given BIDMEALS [facility] Simvastatin 20 mg 01/25/18 09:00 01/25/18 14:59 Zocor PO 20 mg DAILY [facility] Administration - Radiology Interpretation Free Text/Narrative:: 57-year-old male presents the ED with acute onset of left precordial chest pain which he describes as pressure and heaviness. There is a sharp stabbing component to the pain as well. Radiates up into the left lateral neck and he feels a bit in his infrascapular area in his left back. Slight radiation of pain to left shoulder. She's had this type of pain many times in the past and usually takes nitroglycerin tablet and it dissipates. Is on having a nitroglycerin tablets with him today. Patient apparently was investigated by cardiology 2 years ago with an angiogram which proved to be negative for any significant obstruction. He was told that there was some form of muscular growth around one of his coronary arteries and he was going to experience angina on intermittent basis i.e. Prinzmetal's angina. He has never had a heart attack. Continues to smoke cigarettes pack and half per day. He has hypercholesterolemia placing him at risk. Not yet taken any aspirin yet today. He has not yet eaten or drank today. Plan :aspirin 324 mg chewed. Nitroglycerin tablet 0.4 mg sublingual. Nitroglycerin drip at 10 mcg/min.. Labs to be done including cardiac markers. - Re-Assessments/Exams Free Text/Narrative Re-Assessment/Exam: 01/24/18: CXR reveals prominent aortic knob. Slightly tortuous aorta. Perhaps very slight diffuse vascular congestion pattern 01/24/18 07:40 Initial labs are back. White count is 7.77 with 67% neutrophils and 1% band cells. Hemoglobin is 14.5 hematocrit of 43.8. Platelet count is 249, 000. Sodium is 1:30 with a potassium of 3.9. Chloride is 103 with a bicarbonate of 24. And a gap is normal at 14.9. BUN is 15 with a creatinine of 1.1. GFR is greater than 60. Glucose is 89 calcium is 8.7. Liver function is normal. CK-MB is 1.1 with a troponin I of less than 0.017. Second ECG is essentially unchanged from the first. There may be very slight ST segment elevation in leads 1 and aVL and V6. There is an early diffuse repolarization pattern noted in the precordial leads primarily. Patient reports his pain is maybe a 1 out of 10 mainly in the precordial chest. 01/24/18 07:54 Patient will be for repeat cardiac markers at 0830: Dr Cummins will assume care as it is change of shift.
[2018-01-24] MEDS ORDERED: Aspirin 81 MG Tab.Chew PO ONE (06:10)
[2018-01-24] MEDS ORDERED: Nitroglycerin 0.4 MG Tab.SL SL ONE (06:12)
[2018-01-24] MEDS ORDERED: Nitroglycerin/D5W 25 MG/250 ML BOTTLE IV SCH (06:15)
[2018-01-24] MEDS: Sodium Chloride 0.9% 1,000 ML IV SCH ×2 (06:20→16:25)
--- NOTE | 2018-01-24 07:37 | CR ---
Chest: Frontal view of the chest was obtained. Comparison: Prior chest x-ray of 07/05/16. Heart size is normal. Tortuous thoracic aorta is seen. Lungs are clear. Bony structures are grossly intact. Impression: 1. Nothing acute is appreciated on frontal chest x-ray. Diagnostic code #1
[2018-01-24] MEDS: Nicotine 21 MG/24 Hr Patch TRDERM SCH (13:43)
--- NOTE | 2018-01-24 15:58 | PCM.HP ---
H&P History of Present Illness - General Date of Service: 01/24/18 Admit Problem/Dx: Chest pain Source of Information: Patient, Provider, RN, RN Notes Reviewed History Limitations: Reports: No Limitations - History of Present Illness Initial Comments - Free Text/Narative: Corwin Jim is a 57 yo male who presents to our ED today (01/24/18) with sudden onset left precordial chest pain radiates up into the left lateral neck and also into his infrascapular area slightly to his left shoulder. He reports started suddenly at rest as he was heading to work. He reports he has had this episode in the past multiple times. He does take a nitroglycerin tablet and then the dyspnea. He does not have any nitroglycerin with him today. Reports that 2 years ago he had an angiogram which did not show any significant areas of buildup. No stents were placed. He was told there is muscle growth around one of his coronary arteries and he was going to get intermittent spasm of the artery and angina. He reports he has not had an attack for several months. Denies any cough or sputum production, orthopnea, PND. No recent fever, chills , flulike symptoms. He reports he has GERD but takes daily Prilosec with good control. His eyes any Tums or Rolaids for several months. Burping/belching does not seem to make any difference in this type of pain. He did not eat yet today. In the ED temp was 35.9C. Pulse 64. Respirations 12. BP 109/74. Pulse ox 94 %. EKG was obtained which shows a sinus rhythm at 80 bpm with no signs of ischemia or ectopy. Labs were obtained: CBC is normal at 7.77. Hemoglobin 14.5. Hematocrit 43.8. He is normocytic. Platelets 249,000. Neutrophils are elevated at 67%. Band neutrophils are 1%. Sodium 138. Potassium 3.9. Chloride 103. Carbon dioxide 24. Anion gap on the high end of normal at 14.9. Creatinine 1.1. EGFR greater than 60. Glucose is 89. AST 16, ALT 15, alk phosphatase 88. Troponins were drawn twice and both times were negative at less than 0.017. CK-MB was drawn twice and both times were 1.1. Albumin is 3.6. He was given 324 mg of aspirin and 0.4 mg nitroglycerin sublingually. Nitroglycerin drip was started. Chest x-ray is interpreted by Dr. Richmond as having a slightly tortuous aorta, nothing acute is seen. A second EKG is obtained which shows positive very slight ST segment elevation in leads 1 and aVL, along with B6. Early diffuse repolarization pattern is noted in the precordial leads primarily. He carries a history of: HLD, right coronary artery muscle bundle, sleep apnea, GERD, chronic back pain, osteoarthritis, low back degenerative joint disease, anxiety. He is a current every day smoker. He is subsequently admitted to the medical floor observation status with telemetry. He is a full code. He does not have a primary care provider here. Onset of Symptoms: Reports: Today Symptom Onset Date: 01/24/18 Symptom Onset Time: 05:30 Duration of Symptoms: Reports: Minutes: Location: Reports: Chest Quality: Reports: Ache, Pressure Severity: Moderate Improves with: Reports: None Worsens with: Reports: None Associated Symptoms: Reports: No Other Symptoms Left Chest Pain Score (Numeric/FACES): 0 - Related Data Allergies/Adverse Reactions: Allergies Allergy/AdvReac Type Severity Reaction Status Date / Time No Known Allergies Allergy Verified 01/24/18 06:04 Home Medications: Home Meds Aspirin 81 mg PO DAILY #30 tab.chew 07/06/16 [Rx] Nitroglycerin 0.4 mg SL ASDIRECTED #12 tab.subl 07/06/16 [Rx] Pravastatin Sodium [Pravastatin (Pravachol)] 40 mg PO DAILY #30 tablet 07/06/16 [Rx] Omeprazole 20 mg PO BID 08/31/17 [History] Past Medical History HEENT History: Reports: Sinusitis, Other (See Below) Other HEENT History: pharyngitis Cardiovascular History: Reports: Angina, High Cholesterol, Other (See Below) Other Cardiovascular History: cardiac catheterization, Right cornary artery muscle bundle Respiratory History: Reports: Sleep Apnea, Other (See Below) Other Respiratory History: upper respiratory infection, cough Gastrointestinal History: Reports: GERD, Other (See Below) Other Gastrointestinal History: RLQ pain Genitourinary History: Reports: Other (See Below) Other Genitourinary History: right testicle pain due to hernia PHYSICIAN EXTENDER History: Reports: None Musculoskeletal History: Reports: Back Pain, Chronic, Osteoarthritis, Other ( See Below) Other Musculoskeletal History: low back degenerative joint disease Neurological History: Reports: None Psychiatric History: Reports: Anxiety Endocrine/Metabolic History: Reports: None Hematologic History: Reports: None Immunologic History: Reports: None Oncologic (Cancer) History: Reports: None Dermatologic History: Reports: None - Infectious Disease History Infectious Disease History: Reports: Chicken Pox, Influenza, Measles, Mumps - Past Surgical History HEENT Surgical History: Reports: Oral Surgery Other HEENT Surgeries/Procedures: compact wisdom teeth Cardiovascular Surgical History: Reports: None Respiratory Surgical History: Reports: None GI Surgical History: Reports: Hernia Repair/Other Male Surgical History: Reports: Vasectomy Other Male Surgeries/Procedures: 32 years ago Neurological Surgical History: Reports: Lumbar Spine Musculoskeletal Surgical History: Reports: Arthroscopic Knee, Other (See Below) Other Musculoskeletal Surgeries/Procedures:: left elbow surgery, low back surgery, both knees done-meniscus Oncologic Surgical History: Reports: None Dermatological Surgical History: Reports: None Social & Family History - Family History Family Medical History: Noncontributory - Tobacco Use Smoking Status *Q: Current Every Day Smoker Years of Tobacco use: 40 Packs/Tins Daily: 0.5 Used Tobacco, but Quit: No Second Hand Smoke Exposure: Yes - Caffeine Use Caffeine Use: Reports: Coffee, Soda Other Caffeine Use: 2-0.5 L - Alcohol Use Days Per Week of Alcohol Use: 2 Number of Drinks Per Day: 0 Total Drinks Per Week: 0 - Recreational Drug Use Recreational Drug Use: No - Living Situation & Occupation Living situation: Reports: Occupation: Employed H&P Review of Systems - Review of Systems: Review Of Systems: See Below General: Reports: No Symptoms. Denies: Fever, Chills, Malaise, Weakness, Fatigue, Decreased Appetite HEENT: Reports: No Symptoms. Denies: Ear Pain, Eye Pain, Sore Throat, Visual Changes Pulmonary: Reports: No Symptoms. Denies: Shortness of Breath, Wheezing, Pleuritic Chest Pain, Cough, Sputum Cardiovascular: Reports: No Symptoms. Denies: Chest Pain, Palpitations, Dyspnea on Exertion, Edema, Lightheadedness Gastrointestinal: Reports: No Symptoms. Denies: Abdominal Pain, Constipation, Diarrhea, Distension, Nausea, Vomiting Genitourinary: Reports: No Symptoms. Denies: Dysuria, Frequency, Burning, Pain Musculoskeletal: Reports: No Symptoms Skin: Reports: No Symptoms Psychiatric: Reports: No Symptoms Neurological: Reports: No Symptoms Hematologic/Lymphatic: Reports: No Symptoms Immunologic: Reports: No Symptoms Exam - Exam Exam: See Below - Vital Signs Vital Signs: Last Vital Signs Temp 97.2 F 01/24/18 14:14 Pulse 63 01/24/18 14:14 Resp 20 01/24/18 14:14 BP 100/72 01/24/18 14:14 Pulse Ox 93 L 01/24/18 14:14 Weight: 232 lb 3.2 oz - Exam Quality Assessment: DVT Prophylaxis General: Alert, Oriented, Cooperative. No: Mild Distress HEENT: PERRLA, Hearing Intact, Mucosa Moist & [place], Nares Patent, Normal Nasal Septum, Posterior Pharynx Clear, Conjunctiva Clear, EOMI, EACs Clear, TMs Clear Neck: Supple, Trachea Midline. No: JVD, Thyromegaly Lungs: Clear to Auscultation, Normal Respiratory Effort Cardiovascular: Regular Rate, Regular Rhythm GI/Abdominal Exam: Normal Bowel Sounds, Soft, Non-Tender, No Organomegaly, No Distention, No Abnormal Bruit, No Mass, Pelvis Stable (Male) Exam: Deferred Rectal (Males) Exam: Deferred Back Exam: Normal Inspection, Full Range of Motion Extremities: Normal Inspection, Normal Range of Motion, Non-Tender, No Pedal Edema, Normal Capillary Refill Peripheral Pulses: 2+: Radial (L), Radial (R), Posterior Tibial (L), Posterior Tibial (R), Dorsalis Pedis (L), Dorsalis Pedis (R) Skin: Warm, Dry, Intact Neurological: Cranial Nerves Intact (grossly ) Neuro Extensive - Mental Status: Alert, Oriented x3, Normal Mood/Affect, Normal Cognition, Memory Intact Psychiatric: Alert, Normal Affect, Normal Mood - Patient Data Result Diagrams: 01/24/18 06:08 01/24/18 06:08 *Q Meaningful Use (ADM) - VTE *Q VTE Criteria *Q: - Stroke *Q Stroke Criteria *Q: - AMI *Q AMI Criteria *Q: - Problem List (1) Chest pain SNOMED Code(s): 11951690 ICD Code: R07.9 - CHEST PAIN, UNSPECIFIED Status: Acute Priority: High Current Visit: Yes Qualifiers: Chest pain type: other chest pain Qualified Code(s): R07.89 - Other chest pain; R07.8 - Other chest pain (2) REGGIE (obstructive sleep apnea) SNOMED Code(s): 50802189 ICD Code: G47.33 - OBSTRUCTIVE SLEEP APNEA (ADULT) (PEDIATRIC) Status: Chronic Priority: Medium Current Visit: No (3) GERD (gastroesophageal reflux disease) SNOMED Code(s): 031680161 ICD Code: K21.9 - GASTRO-ESOPHAGEAL REFLUX DISEASE WITHOUT ESOPHAGITIS Status: Chronic Priority: Medium Current Visit: No Qualifiers: Esophagitis presence: esophagitis presence not specified Qualified Code(s) : K21.9 - Gastro-esophageal reflux disease without esophagitis (4) Chronic back pain SNOMED Code(s): 013507195 ICD Code: M54.9 - DORSALGIA, UNSPECIFIED; G89.29 - OTHER CHRONIC PAIN Status: Chronic Priority: Low Current Visit: No Qualifiers: Back pain location: back pain in unspecified location Back pain laterality : unspecified Qualified Code(s): M54.9 - Dorsalgia, unspecified; G89.29 - Other chronic pain; G89.29 - Other chronic pain (5) Anxiety SNOMED Code(s): 10234123 ICD Code: F41.9 - ANXIETY DISORDER, UNSPECIFIED Status: Chronic Priority : Low Current Visit: No (6) HLD (hyperlipidemia) SNOMED Code(s): 51947778 ICD Code: E78.5 - HYPERLIPIDEMIA, UNSPECIFIED Status: Chronic Priority: Low Current Visit: No Qualifiers: Hyperlipidemia type: unspecified Qualified Code(s): E78.5 - Hyperlipidemia , unspecified (7) Nicotine dependence SNOMED Code(s): 46318999 ICD Code: F17.200 - NICOTINE DEPENDENCE, UNSPECIFIED, UNCOMPLICATED Status : Chronic Priority: Medium Current Visit: Yes Qualifiers: Nicotine product type: cigarettes Substance use status: uncomplicated Qualified Code(s): F17.210 - Nicotine dependence, cigarettes, uncomplicated (8) Obesity (BMI 35.0-39.9 without comorbidity) SNOMED Code(s): 081642876 ICD Code: E66.9 - OBESITY, UNSPECIFIED Status: Chronic Priority: Medium Current Visit: No Problem List Initiated/Reviewed/Updated: Yes Orders Last 24hrs: Active Orders 24 hr Category Date Time Status Activity as Tolerated [RC] .Routine Care 01/24/18 12:18 Active Vital Signs [RC] Q4HR Care 01/24/18 12:17 Active Consult to Dietary [Consult to Process Mold Technician] [CONS] Cons 01/24/18 12:18 Active Routine Heart Healthy Diet [DIET] Diet 01/24/18 Lunch Active NPO After Midnight [Nothing per Oral After Midnight Diet 01/25/18 Breakfast Active Diet] [DIET] Cardiolite Stress Test [Myocardial Perf Spect Multi] [ Exams 01/25/18 05:00 Ordered NM] Routine LIPID PANEL [CHEM] Routine Lab 01/25/18 05:00 Ordered MAGNESIUM [CHEM] Routine Lab 01/24/18 18:00 Ordered TROPONIN I [CHEM] Routine Lab 01/24/18 18:00 Ordered Aspirin Med 01/25/18 09:00 Active 81 mg PO DAILY Nicotine [Habitrol] Med 01/24/18 12:30 Active 21 mg TRDERM DAILY Pantoprazole [ProTONIX] Med 01/24/18 17:00 Active 40 mg PO BIDMEALS Remove Patch Med 01/25/18 09:00 Active 0 ea TRDERM DAILY Simvastatin [Zocor] Med 01/25/18 09:00 Active 20 mg PO DAILY Resuscitation Status Routine Resus Stat 01/24/18 14:11 Ordered Medication Orders Aspirin (Aspirin) 81 mg PO DAILY [facility] Sodium Chloride (Normal Saline) 1,000 mls @ 100 mls/hr IV ASDIRECTED [facility] Last Admin: 01/24/18 06:20 Dose: 100 mls/hr Miscellaneous Information (Remove Patch) 0 ea TRDERM DAILY JAVAN Nicotine (Habitrol) 21 mg TRDERM DAILY [facility] Last Admin: 01/24/18 13:43 Dose: 21 mg Pantoprazole Sodium (Protonix) 40 mg PO BIDMEALS JAVAN Simvastatin (Zocor) 20 mg PO DAILY [facility] Assessment/Plan Comment:: I/P: Acute: Chest pain -5/10 radiating to neck and back in ED - absent on exam on floor -Risk Factors: HLD, REGGIE, Smoker, sedimentary lifestyle, obesity -Hx/o cardiac catheterization with right coronary artery muscle bundle noted. -ASA/nitro given in ED -Continue home ASA -Stress Test in AM -NPO after midnight -Hold nitro for now -Lipid panel, serial troponins, CKMB -Telemetry -Dietary consult Nicotine dependance -Smokes 1/2 pack per day -Discuss smoking cessation -Nicotine patch Chronic: HLD - continue statin REGGIE - CPAP - RT notified GERD - home PPI Chronic back pain low back DJD Anxiety Plan: Admit to medical floor observation status on telemetry Routine AM labs Other orders as indicated above GI prophylaxis: home PPI DVT/PE prophylaxis: lovenox Code Status: Full code. PCP: he "sees whoever is available" at [facility] in [place]
[2018-01-24] MEDS: Pantoprazole 40 MG Tab.CR PO SCH (16:21)
[2018-01-24] MEDS ORDERED: Enoxaparin 40 MG/0.4 ML Syringe SUBCUT SCH (17:00)
[2018-01-24] MEDS ORDERED: Acetaminophen 650 MG Supp RECTAL PRN (19:14)
[2018-01-24] MEDS ORDERED: Ondansetron 4 MG/2 ML SDV IV PRN (19:14)
[2018-01-24] MEDS ORDERED: Ondansetron 4 MG Tab.DIS PO PRN (19:14)
--- NOTE | 2018-01-25 06:32 | PCM.PN ---
- General Info Date of Service: 01/25/18 Admission Dx/Problem (Free Text): Chest pain Milo is seen this morning prior to stress test, did not sleep the best- "restless", no CP overnight or since admission. Cardiolite stress test this morning Functional Status: Reports: Pain Controlled, Ambulating, Urinating. Denies: Tolerating Diet (NPO since MN), New Symptoms - Review of Systems General: Reports: No Symptoms HEENT: Reports: No Symptoms Pulmonary: Reports: No Symptoms. Denies: Shortness of Breath, Cough Cardiovascular: Reports: No Symptoms. Denies: Chest Pain (none since presentation to ED), Palpitations, Dyspnea on Exertion Gastrointestinal: Reports: No Symptoms. Denies: Nausea Genitourinary: Reports: No Symptoms Musculoskeletal: Reports: No Symptoms Skin: Reports: No Symptoms Neurological: Reports: No Symptoms Psychiatric: Reports: No Symptoms - Patient Data Vitals - Most Recent: Last Vital Signs Temp 97.7 F 01/25/18 01:14 Pulse 63 01/25/18 01:14 Resp 16 01/25/18 01:14 BP 114/65 01/25/18 01:14 Pulse Ox 96 01/25/18 01:14 Weight - Most Recent: 227 lb 1.6 oz I&O - Last 24 Hours: Intake & Output 01/24/18 01/24/18 01/25/18 14:59 22:59 06:59 Intake Total 975 531 Balance 975 531 Lab Results Last 24 Hours: Laboratory Results - last 24 hr 01/24/18 01/25/18 01/25/18 Range/Units 17:56 05:15 05:15 WBC 8.86 (4.23-9.07) K/mm3 RBC 4.89 (4.63-6.08) M/mm3 Hgb 14.6 (13.7-17.5) gm/L Hct 43.2 (40.1-51.0) % MCV 88.3 (79.0-92.2) fl MCH 29.9 (25.7-32.2) pg MCHC 33.8 (32.2-35.5) g/dl RDW Std Deviation 42.1 (35.1-43.9) fL Plt Count 233 (163-337) K/mm3 MPV 10.7 (9.4-12.3) fl Neut % (Auto) 69.9 H (34.0-67.9) % Lymph % (Auto) 20.5 L (21.8-53.1) % [place] % (Auto) 6.3 (5.3-12.2) % Eos % (Auto) 2.8 (0.8-7.0) Baso % (Auto) 0.3 (0.1-1.2) % Neut # (Auto) 6.18 H (1.78-5.38) K/mm3 Lymph # (Auto) 1.82 (1.32-3.57) K/mm3 [place] # (Auto) 0.56 (0.30-0.82) K/mm3 Eos # (Auto) 0.25 (0.04-0.54) K/mm3 Baso # (Auto) 0.03 (0.01-0.08) K/mm3 Sodium (136-145) mEq/L Potassium (3.5-5.1) mEq/L Chloride (98-107) mEq/L Carbon Dioxide (21-32) mEq/L Anion Gap (5-15) BUN (7-18) mg/dL Creatinine (0.7-1.3) mg/dL Est Cr Clr Drug Dosing mL/min Estimated GFR (MDRD) (>60) mL/min BUN/Creatinine Ratio (14-18) Glucose (74-106) mg/dL Calcium (8.5-10.1) mg/dL Magnesium 2.2 (1.8-2.4) mg/dl CK-MB (CK-2) (0-3.6) ng/ml Troponin I < 0.017 (0.00-0.056) ng/mL Triglycerides 165 H (<150) mg/dL Cholesterol 164 (<200) mg/dL LDL Cholesterol Direct 110 H* (<100) mg/dL HDL Cholesterol 29.0 L (40-59) mg/dL 01/25/18 Range/Units 05:15 WBC (4.23-9.07) K/mm3 RBC (4.63-6.08) M/mm3 Hgb (13.7-17.5) gm/L Hct (40.1-51.0) % MCV (79.0-92.2) fl MCH (25.7-32.2) pg MCHC (32.2-35.5) g/dl RDW Std Deviation (35.1-43.9) fL Plt Count (163-337) K/mm3 MPV (9.4-12.3) fl Neut % (Auto) (34.0-67.9) % Lymph % (Auto) (21.8-53.1) % [place] % (Auto) (5.3-12.2) % Eos % (Auto) (0.8-7.0) Baso % (Auto) (0.1-1.2) % Neut # (Auto) (1.78-5.38) K/mm3 Lymph # (Auto) (1.32-3.57) K/mm3 [place] # (Auto) (0.30-0.82) K/mm3 Eos # (Auto) (0.04-0.54) K/mm3 Baso # (Auto) (0.01-0.08) K/mm3 Sodium 139 (136-145) mEq/L Potassium 4.3 (3.5-5.1) mEq/L Chloride 105 (98-107) mEq/L Carbon Dioxide 27 (21-32) mEq/L Anion Gap 11.3 (5-15) BUN 13 (7-18) mg/dL Creatinine 1.0 (0.7-1.3) mg/dL Est Cr Clr Drug Dosing 87.54 mL/min Estimated GFR (MDRD) > 60 (>60) mL/min BUN/Creatinine Ratio 13.0 L (14-18) Glucose 91 (74-106) mg/dL Calcium 8.8 (8.5-10.1) mg/dL Magnesium 2.2 (1.8-2.4) mg/dl CK-MB (CK-2) 0.5 (0-3.6) ng/ml Troponin I < 0.017 (0.00-0.056) ng/mL Triglycerides (<150) mg/dL Cholesterol (<200) mg/dL LDL Cholesterol Direct (<100) mg/dL HDL Cholesterol (40-59) mg/dL Med Orders - Current: Current Medications Acetaminophen (Tylenol) 650 mg RECTAL Q4H PRN PRN Reason: Pain (mild 1-3) Aspirin (Aspirin) 81 mg PO DAILY JAVAN Enoxaparin Sodium (Lovenox) 40 mg SUBCUT DAILY@1700 [facility] Last Admin: 01/24/18 16:22 Dose: 40 mg Miscellaneous Information (Remove Patch) 0 ea TRDERM DAILY [facility] Nicotine (Habitrol) 21 mg TRDERM DAILY [facility] Last Admin: 01/24/18 13:43 Dose: 21 mg Ondansetron HCl (Zofran Odt) 4 mg PO Q6H PRN PRN Reason: nausea, able to take PO Ondansetron HCl (Zofran) 4 mg IV Q6H PRN PRN Reason: Nausea/Vomiting Pantoprazole Sodium (Protonix) 40 mg PO BIDMEALS [facility] Last Admin: 01/24/18 16:21 Dose: 40 mg Simvastatin (Zocor) 20 mg PO DAILY [facility] Discontinued Medications Aspirin (Aspirin) 324 mg PO ONETIME ONE Stop: 01/24/18 06:11 Last Admin: 01/24/18 06:19 Dose: 324 mg Nitroglycerin/Dextrose (Nitroglycerin 25 Mg/D5w 250 Ml) 25 mg in 250 mls @ 6 mls/hr IV ASDIRECTED [facility] PRN Reason: 10 MCG/MIN Last Admin: 01/24/18 06:32 Dose: 10 mcg/min, 6 mls/hr Sodium Chloride (Normal Saline) 1,000 mls @ 100 mls/hr IV ASDIRECTED [facility] Last Admin: 01/24/18 16:25 Dose: 100 mls/hr Nitroglycerin (Nitrostat) 0.4 mg SL ONETIME ONE Stop: 01/24/18 06:13 Last Admin: 01/24/18 06:20 Dose: 0.4 mg - Exam Quality Assessment: DVT Prophylaxis General: Alert, Oriented, Cooperative, No Acute Distress HEENT: Pupils Equal, EOMI, Mucous Membr. Moist/[place] Neck: Supple Lungs: Clear to Auscultation, Normal Respiratory Effort, Decreased Breath Sounds (bases) Cardiovascular: Regular Rate, Regular Rhythm, No Murmurs GI/Abdominal Exam: Normal Bowel Sounds, Soft, Non-Tender (Male) Exam: Deferred Back Exam: Normal Inspection Extremities: No Pedal Edema, Normal Capillary Refill Neurological: No New Focal Deficit Psy/Mental Status: Alert, Normal Affect, Normal Mood - Problem List & Annotations (1) Chest pain SNOMED Code(s): 12253436 Code(s): R07.9 - CHEST PAIN, UNSPECIFIED Status: Resolved Priority: High Current Visit: Yes Qualifiers: Chest pain type: unspecified Qualified Code(s): R07.9 - Chest pain, unspecified (2) HLD (hyperlipidemia) SNOMED Code(s): 97696481 Code(s): E78.5 - HYPERLIPIDEMIA, UNSPECIFIED Status: Chronic Priority: Low Current Visit: Yes Qualifiers: Hyperlipidemia type: unspecified Qualified Code(s): E78.5 - Hyperlipidemia , unspecified (3) Nicotine dependence SNOMED Code(s): 60464354 Code(s): F17.200 - NICOTINE DEPENDENCE, UNSPECIFIED, UNCOMPLICATED Status: Chronic Priority: Medium Current Visit: Yes Qualifiers: Nicotine product type: cigarettes Substance use status: uncomplicated Qualified Code(s): F17.210 - Nicotine dependence, cigarettes, uncomplicated (4) Obesity (BMI 35.0-39.9 without comorbidity) SNOMED Code(s): 703276067 Code(s): E66.9 - OBESITY, UNSPECIFIED Status: Chronic Priority: Medium Current Visit: Yes - Problem List Review Problem List Initiated/Reviewed/Updated: Yes - My Orders Last 24 Hours: My Active Orders 01/25/18 06:25 Smoking Cessation Education [RC] DAILY - Plan Plan:: I/P: Acute: Chest pain---resolved since being seen in ED, none overnight -5/10 radiating to neck and back in ED - absent on exam on floor -Risk Factors: HLD, REGGIE, Smoker, sedimentary lifestyle, obesity -Hx/o cardiac cath with right coronary artery muscle bundle noted. -ASA/nitro given in ED -Continue home ASA -Stress Test in AM initial electrographic portion is negative-- awaiting nuclear imaging -NPO after midnight -Lipid panel, serial troponins, CKMB--negative enzymes, lipids acceptable, cont home statin -Telemetry -Dietary consult Nicotine dependance -Smokes 1/2 pack per day -Discuss smoking cessation -Nicotine patch Chronic: HLD - continue statin REGGIE - CPAP - RT notified GERD - home PPI Chronic back pain low back DJD Anxiety Plan: Admit to medical floor observation status on telemetry Routine AM labs Other orders as indicated above GI prophylaxis: home PPI DVT/PE prophylaxis: lovenox Negative electrographic portion of cardiolite stress test. Discussed case with Dr. Johnson, will place on imdur 30mg daily for angina. DC pending nuclear imaging with follow up with PCP within one week of discharge. Code Status: Full code. PCP: he "sees whoever is available" at [facility]
[2018-01-25] MEDS: Pantoprazole 40 MG Tab.CR PO SCH (06:43)
[2018-01-25] MEDS ORDERED: Simvastatin 20 MG Tab PO SCH (09:00)
[2018-01-25] MEDS ORDERED: Aspirin 81 MG Tab.Chew PO SCH (09:00)
[2018-01-25] MEDS ORDERED: Isosorbide Mononitrate 30 MG Tab.ER PO SCH (12:00)
[2018-01-25 14:33] VITALS: BP 117/71
--- NOTE | 2018-01-25 14:54 | PCM.DCSUM1 ---
Discharge Summary - Hospital Course HPI Initial Comments: Corwin Jim is a 57 yo male who presents to our ED today (01/24/18) with sudden onset left precordial chest pain radiates up into the left lateral neck and also into his infrascapular area slightly to his left shoulder. He reports started suddenly at rest as he was heading to work. He reports he has had this episode in the past multiple times. He does take a nitroglycerin tablet and then the dyspnea. He does not have any nitroglycerin with him today. Reports that 2 years ago he had an angiogram which did not show any significant areas of buildup. No stents were placed. He was told there is muscle growth around one of his coronary arteries and he was going to get intermittent spasm of the artery and angina. He reports he has not had an attack for several months. Denies any cough or sputum production, orthopnea, PND. No recent fever, chills , flulike symptoms. He reports he has GERD but takes daily Prilosec with good control. His eyes any Tums or Rolaids for several months. Burping/belching does not seem to make any difference in this type of pain. He did not eat yet today. In the ED temp was 35.9C. Pulse 64. Respirations 12. BP 109/74. Pulse ox 94 %. EKG was obtained which shows a sinus rhythm at 80 bpm with no signs of ischemia or ectopy. Labs were obtained: CBC is normal at 7.77. Hemoglobin 14.5. Hematocrit 43.8. He is normocytic. Platelets 249,000. Neutrophils are elevated at 67%. Band neutrophils are 1%. Sodium 138. Potassium 3.9. Chloride 103. Carbon dioxide 24. Anion gap on the high end of normal at 14.9. Creatinine 1.1. EGFR greater than 60. Glucose is 89. AST 16, ALT 15, alk phosphatase 88. Troponins were drawn twice and both times were negative at less than 0.017. CK-MB was drawn twice and both times were 1.1. Albumin is 3.6. He was given 324 mg of aspirin and 0.4 mg nitroglycerin sublingually. Nitroglycerin drip was started. Chest x-ray is interpreted by Dr. Richmond as having a slightly tortuous aorta, nothing acute is seen. A second EKG is obtained which shows positive very slight ST segment elevation in leads 1 and aVL, along with B6. Early diffuse repolarization pattern is noted in the precordial leads primarily. He carries a history of: HLD, right coronary artery muscle bundle, sleep apnea, GERD, chronic back pain, osteoarthritis, low back degenerative joint disease, anxiety. He is a current every day smoker. He is subsequently admitted to the medical floor observation status with telemetry. He is a full code. He reports he sees "whoever is available" at [facility]. - Discharge Data Discharge Date: 01/25/18 (Admit Date: 01/24/18) Discharge Disposition: Home, Self-Care 01 Condition: Good - Discharge Diagnosis/Problem(s) (1) Chest pain SNOMED Code(s): 70113953 ICD Code: R07.9 - CHEST PAIN, UNSPECIFIED Status: Resolved Priority: High Current Visit: Yes Qualifiers: Chest pain type: other chest pain Qualified Code(s): R07.89 - Other chest pain; R07.8 - Other chest pain (2) REGGIE (obstructive sleep apnea) SNOMED Code(s): 84325705 ICD Code: G47.33 - OBSTRUCTIVE SLEEP APNEA (ADULT) (PEDIATRIC) Status: Chronic Priority: Medium Current Visit: No (3) GERD (gastroesophageal reflux disease) SNOMED Code(s): 278090204 ICD Code: K21.9 - GASTRO-ESOPHAGEAL REFLUX DISEASE WITHOUT ESOPHAGITIS Status: Chronic Priority: Medium Current Visit: No Qualifiers: Esophagitis presence: esophagitis presence not specified Qualified Code(s) : K21.9 - Gastro-esophageal reflux disease without esophagitis (4) Chronic back pain SNOMED Code(s): 707655396 ICD Code: M54.9 - DORSALGIA, UNSPECIFIED; G89.29 - OTHER CHRONIC PAIN Status: Chronic Priority: Low Current Visit: No Qualifiers: Back pain location: back pain in unspecified location Back pain laterality : unspecified Qualified Code(s): M54.9 - Dorsalgia, unspecified; G89.29 - Other chronic pain; G89.29 - Other chronic pain (5) Anxiety SNOMED Code(s): 93103991 ICD Code: F41.9 - ANXIETY DISORDER, UNSPECIFIED Status: Chronic Priority : Low Current Visit: No (6) HLD (hyperlipidemia) SNOMED Code(s): 20605894 ICD Code: E78.5 - HYPERLIPIDEMIA, UNSPECIFIED Status: Chronic Priority: Low Current Visit: Yes Qualifiers: Hyperlipidemia type: unspecified Qualified Code(s): E78.5 - Hyperlipidemia , unspecified (7) Nicotine dependence SNOMED Code(s): 92412076 ICD Code: F17.200 - NICOTINE DEPENDENCE, UNSPECIFIED, UNCOMPLICATED Status : Chronic Priority: Medium Current Visit: Yes Qualifiers: Nicotine product type: cigarettes Substance use status: uncomplicated Qualified Code(s): F17.210 - Nicotine dependence, cigarettes, uncomplicated (8) Obesity (BMI 35.0-39.9 without comorbidity) SNOMED Code(s): 243347807 ICD Code: E66.9 - OBESITY, UNSPECIFIED Status: Chronic Priority: Medium Current Visit: Yes - Patient Summary/Data Consults: Consultations 01/24/18 12:18 Consult to Dietary [Consult to Press Clipper] [CONS] Routine Labs Pending at D/C: None Recommended Follow-up Testing/Procedures: Follow-up with PCP in 7-10 days. We discussed seeing cardiology, as you have seen them in the past. Discuss this with your PCP. They may decided to refer you back to them. Hospital Course: I/P: Acute: Chest pain---resolved since being seen in ED, none overnight -5/10 radiating to neck and back in ED - absent on exam on floor -Risk Factors: HLD, REGGIE, Smoker, sedimentary lifestyle, obesity -Hx/o cardiac cath with right coronary artery muscle bundle noted. -ASA/nitro given in ED -Continue home ASA -Stress Test in AM initial electrographic portion and nuclear portion are negative -NPO after midnight -Lipid panel, serial troponins, CKMB--negative enzymes, lipids acceptable, cont home statin -Telemetry -Dietary consult Nicotine dependance -Smokes 1/2 pack per day -Discuss smoking cessation -Nicotine patch Chronic: HLD - continue statin REGGIE - CPAP - RT notified GERD - home PPI Chronic back pain low back DJD Anxiety Plan: Admit to medical floor observation status on telemetry Routine AM labs Other orders as indicated above GI prophylaxis: home PPI DVT/PE prophylaxis: lovenox Negative electrographic portion of cardiolite stress test. Discussed case with Dr. Johnson, will place on imdur 30mg daily for angina. He will be discharged today as his electrographic and nuclear portion of the stress test were negative. Code Status: Full code. PCP: he "sees whoever is available" at [facility] in [place] - Patient Instructions Diet: Heart Healthy Diet Activity: As Tolerated Showering/Bathing: May Shower Notify Provider of: Fever, Increased Pain, Nausea and/or Vomiting - Discharge Plan Prescriptions/Med Rec: Isosorbide Mononitrate [Imdur] 30 mg PO DAILY #30 tab.er Home Medications: Home Meds Aspirin 81 mg PO DAILY #30 tab.chew 07/06/16 [Rx] Nitroglycerin 0.4 mg SL ASDIRECTED #12 tab.subl 07/06/16 [Rx] Pravastatin Sodium [Pravastatin (Pravachol)] 40 mg PO DAILY #30 tablet 07/06/16 [Rx] Omeprazole 20 mg PO BID 08/31/17 [History] Isosorbide Mononitrate [Imdur] 30 mg PO DAILY #30 tab.er 01/25/18 [Rx] Patient Handouts: Steps to Quit Smoking, [id number], Angina Pectoris, Easy-to -Read Forms: ED Department Discharge Referrals: PCP,None [Primary Care Provider] - - Discharge Summary/Plan Comment DC Time >30 min.: Yes (45 mins ) - General Info Date of Service: 01/25/18 Admission Dx/Problem (Free Text: Chest pain Milo is seen this morning prior to stress test, did not sleep the best- "restless", no CP overnight or since admission. Cardiolite stress test this morning Subjective Update: In to see Corwin before he is discharged. He is doing very well. Stress test was negative. He'll be started on Imdur 30. He does have a trip this weekend so I will give him a printed prescription so he can fill out before he leaves as they think [place] pharmacy will be close before they get home. He states he did not sleep very well last night and was quite restless. We discussed smoking cessation. He states both him and his smoke. 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 I did discuss the [place] Quitline and provide him with that phone number. We discussed resources for quitting including his primary care provider who is an excellent resource. He states that they do have some patches at home however at this time he likely will not be stopping. I did discuss the importance of stopping with his heart condition. Lipid levels were acceptable limits and he is already on a statin. He is at no chest pain since he came into the ER. Denies shortness of breath or any other symptoms. He'll be discharged home today. He is to follow-up with his primary care provider in 7-10 days. He was provided a work release stating he may return to work without limitations on 01/26. Functional Status: Reports: Pain Controlled, Tolerating Diet, Ambulating, Urinating. Denies: New Symptoms - Review of Systems General: Reports: No Symptoms HEENT: Reports: No Symptoms Pulmonary: Reports: No Symptoms Cardiovascular: Reports: No Symptoms Gastrointestinal: Reports: No Symptoms Genitourinary: Reports: No Symptoms Musculoskeletal: Reports: No Symptoms Skin: Reports: No Symptoms Neurological: Reports: No Symptoms Psychiatric: Reports: No Symptoms - Patient Data Vitals - Most Recent: Last Vital Signs Temp 97.9 F 01/25/18 12:30 Pulse 88 01/25/18 14:27 Resp 18 01/25/18 14:27 BP 117/71 01/25/18 14:27 Pulse Ox 95 01/25/18 14:27 Weight - Most Recent: 227 lb 1.6 oz I&O - Last 24 hours: Intake & Output 01/24/18 01/25/18 01/25/18 22:59 06:59 14:59 Intake Total 975 631 Balance 975 631 Lab Results - Last 24 hrs: Laboratory Results - last 24 hr 01/24/18 01/25/18 01/25/18 Range/Units 17:56 05:15 05:15 WBC 8.86 (4.23-9.07) K/mm3 RBC 4.89 (4.63-6.08) M/mm3 Hgb 14.6 (13.7-17.5) gm/L Hct 43.2 (40.1-51.0) % MCV 88.3 (79.0-92.2) fl MCH 29.9 (25.7-32.2) pg MCHC 33.8 (32.2-35.5) g/dl RDW Std Deviation 42.1 (35.1-43.9) fL Plt Count 233 (163-337) K/mm3 MPV 10.7 (9.4-12.3) fl Neut % (Auto) 69.9 H (34.0-67.9) % Lymph % (Auto) 20.5 L (21.8-53.1) % Casey % (Auto) 6.3 (5.3-12.2) % Eos % (Auto) 2.8 (0.8-7.0) Baso % (Auto) 0.3 (0.1-1.2) % Neut # (Auto) 6.18 H (1.78-5.38) K/mm3 Lymph # (Auto) 1.82 (1.32-3.57) K/mm3 Casey # (Auto) 0.56 (0.30-0.82) K/mm3 Eos # (Auto) 0.25 (0.04-0.54) K/mm3 Baso # (Auto) 0.03 (0.01-0.08) K/mm3 Sodium (136-145) mEq/L Potassium (3.5-5.1) mEq/L Chloride (98-107) mEq/L Carbon Dioxide (21-32) mEq/L Anion Gap (5-15) BUN (7-18) mg/dL Creatinine (0.7-1.3) mg/dL Est Cr Clr Drug Dosing mL/min Estimated GFR (MDRD) (>60) mL/min BUN/Creatinine Ratio (14-18) Glucose (74-106) mg/dL Calcium (8.5-10.1) mg/dL Magnesium 2.2 (1.8-2.4) mg/dl CK-MB (CK-2) (0-3.6) ng/ml Troponin I < 0.017 (0.00-0.056) ng/mL Triglycerides 165 H (<150) mg/dL Cholesterol 164 (<200) mg/dL LDL Cholesterol Direct 110 H* (<100) mg/dL HDL Cholesterol 29.0 L (40-59) mg/dL 01/25/18 Range/Units 05:15 WBC (4.23-9.07) K/mm3 RBC (4.63-6.08) M/mm3 Hgb (13.7-17.5) gm/L Hct (40.1-51.0) % MCV (79.0-92.2) fl MCH (25.7-32.2) pg MCHC (32.2-35.5) g/dl RDW Std Deviation (35.1-43.9) fL Plt Count (163-337) K/mm3 MPV (9.4-12.3) fl Neut % (Auto) (34.0-67.9) % Lymph % (Auto) (21.8-53.1) % Casey % (Auto) (5.3-12.2) % Eos % (Auto) (0.8-7.0) Baso % (Auto) (0.1-1.2) % Neut # (Auto) (1.78-5.38) K/mm3 Lymph # (Auto) (1.32-3.57) K/mm3 Casey # (Auto) (0.30-0.82) K/mm3 Eos # (Auto) (0.04-0.54) K/mm3 Baso # (Auto) (0.01-0.08) K/mm3 Sodium 139 (136-145) mEq/L Potassium 4.3 (3.5-5.1) mEq/L Chloride 105 (98-107) mEq/L Carbon Dioxide 27 (21-32) mEq/L Anion Gap 11.3 (5-15) BUN 13 (7-18) mg/dL Creatinine 1.0 (0.7-1.3) mg/dL Est Cr Clr Drug Dosing 87.54 mL/min Estimated GFR (MDRD) > 60 (>60) mL/min BUN/Creatinine Ratio 13.0 L (14-18) Glucose 91 (74-106) mg/dL Calcium 8.8 (8.5-10.1) mg/dL Magnesium 2.2 (1.8-2.4) mg/dl CK-MB (CK-2) 0.5 (0-3.6) ng/ml Troponin I < 0.017 (0.00-0.056) ng/mL Triglycerides (<150) mg/dL Cholesterol (<200) mg/dL LDL Cholesterol Direct (<100) mg/dL HDL Cholesterol (40-59) mg/dL Med Orders - Current: Current Medications Acetaminophen (Tylenol) 650 mg RECTAL Q4H PRN PRN Reason: Pain (mild 1-3) Aspirin (Aspirin) 81 mg PO DAILY JAVAN Enoxaparin Sodium (Lovenox) 40 mg SUBCUT DAILY@1700 [facility] Last Admin: 01/24/18 16:22 Dose: 40 mg Isosorbide Mononitrate (Imdur) 30 mg PO DAILY [facility] Miscellaneous Information (Remove Patch) 0 ea TRDERM DAILY [facility] Nicotine (Habitrol) 21 mg TRDERM DAILY [facility] Last Admin: 01/24/18 13:43 Dose: 21 mg Ondansetron HCl (Zofran Odt) 4 mg PO Q6H PRN PRN Reason: nausea, able to take PO Ondansetron HCl (Zofran) 4 mg IV Q6H PRN PRN Reason: Nausea/Vomiting Pantoprazole Sodium (Protonix) 40 mg PO BIDMEALS [facility] Last Admin: 01/25/18 06:43 Dose: Not Given Simvastatin (Zocor) 20 mg PO DAILY [facility] Discontinued Medications Aspirin (Aspirin) 324 mg PO ONETIME ONE Stop: 01/24/18 06:11 Last Admin: 01/24/18 06:19 Dose: 324 mg Nitroglycerin/Dextrose (Nitroglycerin 25 Mg/D5w 250 Ml) 25 mg in 250 mls @ 6 mls[facility]hr [facility] Reason: 10 MCG/MIN Last Admin: 01/24/18 06:32 Dose: 10 mcg/min, 6 mls/hr Sodium Chloride (Normal Saline) 1,000 mls @ 100 mls/hr [facility] Last Admin: 01/24/18 16:25 Dose: 100 mls/hr Nitroglycerin (Nitrostat) 0.4 mg SL ONETIME ONE Stop: 01/24/18 06:13 Last Admin: 01/24/18 06:20 Dose: 0.4 mg - Exam Quality Assessment: Reports: DVT Prophylaxis General: Reports: Alert, Oriented, Cooperative, No Acute Distress HEENT: Reports: Pupils Equal, Pupils Reactive, EOMI, Mucous Membr. Moist/[place] Neck: Reports: Supple, Trachea Midline, No JVD Lungs: Reports: Clear to Auscultation, Normal Respiratory Effort Cardiovascular: Reports: Regular Rate, Regular Rhythm GI/Abdominal Exam: Normal Bowel Sounds, Soft, Non-Tender, No Organomegaly, No Distention, No Abnormal Bruit, No Mass, Pelvis Stable (Male) Exam: Deferred Rectal (Males) Exam: Deferred Back Exam: Reports: Normal Inspection, Full Range of Motion Extremities: Normal Inspection, Normal Range of Motion, Non-Tender, No Pedal Edema, Normal Capillary Refill Skin: Reports: Warm, Dry, Intact Neurological: Reports: No New Focal Deficit Psy/Mental Status: Reports: Alert, Normal Affect, Normal Mood *Q Meaningful Use (DIS) - VTE *Q VTE Criteria *Q: - Stroke *Q Stroke Criteria *Q: - AMI *Q AMI Criteria *Q:
[2018-01-25] MEDS: Nicotine 21 MG/24 Hr Patch TRDERM SCH (15:00)
--- NOTE | 2018-01-25 15:13 | NM ---
Cardiolite cardiac scan I have data stating the patient was stressed utilizing treadmill protocol. Patient reached 140 beats per minute which is also the patient's 85% maximum predicted heart rate. Stress dose of technetium 99m Cardiolite was 10.9 mCi. Rest dose was 28.9 mCi. SPECT imaging was obtained in 3 planes for both portions of the study. Study was also gated. Low-dose chest CT performed to allow for attenuation correction. Comparison: Previous Cardiolite study of 07/06/16. Findings: Activity within the left ventricular myocardium is homogeneous between rest and stress study. No fixed or reversible type change is seen. Ejection fraction is 52%. Wall thickening and wall motion are within normal limits. Impression: 1. No abnormality is identified on Cardiolite portion of cardiac stress test. No significant change is seen from previous study. Diagnostic code #1
--- NOTE | 2018-01-25 22:27 | STRESS ---
REQUESTING PHYSICIAN: DATE: 01/24/2018 ORDERING PROVIDER: Dr. Myriam Johnson. PROCEDURE: Cardiolite stress test. INDICATION: Chest pain. BASELINE: EKG normal sinus rhythm, ventricular rate 69 beats per minute. Q-waves are noted in leads II and AVF, V4, V5, and V6, inverted T-waves are noted in lead III. PROTOCOL: Ender protocol. Max heart rate 153 beats per minute. Peak blood pressure 145/94. Total test time 7 minutes 45 seconds. Total METS achieved 10.1. REASON FOR STOPPING TEST: Achieved target heart rate. During exertion and recovery, the patient did not experience any chest pain or other anginal equivalents. There were no ST, T-wave changes noted. No arrhythmias. PVCs or PACs were noted. IMPRESSION: 1. Electrographically negative exercise stress test for ischemia. 2. Normal blood pressure response to stress/exercise. 3. Good exercise tolerance. 4. Nuclear imaging results pending and will be reported separately per radiologist. MMODAL /[id number]
== END 2018-01-25 16:28 | disposition home or self-care (01) ==
LOC: JD.ED 05:51 → JD.MS 10:33
PROVIDERS: ADMIT Internal Medicine Cardiovascular Disease; ATTEND Internal Medicine Cardiovascular Disease
DX: R07.2 Precordial pain (principal); K21.9 Gastro-esophageal reflux disease without esophagitis; E78.5 Hyperlipidemia, unspecified; M19.90 Unspecified osteoarthritis, unspecified site; F41.9 Anxiety disorder, unspecified; F17.210 Nicotine dependence, cigarettes, uncomplicated; G47.33 Obstructive sleep apnea (adult) (pediatric); M54.9 Dorsalgia, unspecified; G89.29 Other chronic pain; E66.9 Obesity, unspecified; Z79.82 Long term (current) use of aspirin; Z79.899 Other long term (current) drug therapy; Z95.5 Presence of coronary angioplasty implant and graft; Z98.890 Other specified postprocedural states; Z98.52 Vasectomy status
CPT/HCPCS: 36415; 71045; 71045-26; 78452; 78452-26; 80048; 80053; 80061; 82553; 83735; 84484; 85025; 93005; 93010; 94660; 96361; 96365; 96366; 96372; 99285-25; A9270-GY; A9500; G0378; J1650; J7040

== ENCOUNTER 2025-01-06 09:29 | Emergency (ER) | payer OTHER ==
[2025-01-06 10:44] LABS: BASOPHILS ABSOLUTE AUTO 0.1 K/mm3 (0.0-0.2); BASOPHILS PERCENT AUTO 0.9 % (0.0-1.0); EOSINOPHILS ABSOLUTE AUTO 0.1 K/mm3 (0.0-0.4); EOSINOPHILS PERCENT AUTO 1.6 % (0.0-6.0); HEMATOCRIT 39.5 % (42.0-52.0); HEMOGLOBIN 13.6 gm/dl (14.0-18.0); IMMATURE GRAN ABSOLUTE AUTO 0.01 K/mm3 (0.00-0.05); IMMATURE GRAN PERCENT AUTO 0.2 % (0.0-0.4); LYMPHOCYTES PERCENT AUTO 31.5 % (24.0-44.0); MEAN CORPUSCULAR HGB CONC 34.4 g/dl (32.0-36.0); MEAN CORPUSCULAR VOLUME 87.2 fl (83.0-99.0); MEAN PLATELET VOLUME 10.1 fl (9.4-12.4); MONOCYTES ABSOLUTE AUTO 0.4 K/mm3 (0.0-0.8); MONOCYTES PERCENT AUTO 5.9 % (0.0-8.0); NEUTROPHILS ABSOLUTE AUTO 3.9 K/mm3 (1.8-7.7); NEUTROPHILS PERCENT AUTO 59.9 % (41.0-71.0); PLATELET COUNT,PLT 240 K/mm3 (150-400); RED BLOOD CELL COUNT 4.53 M/mm3 (4.52-5.90); WHITE BLOOD CELL COUNT,WBC 6.42 K/mm3 (3.9-11.3)
[2025-01-06 11:45] LABS: A/G RATIO 1.1 (1-2); ALBUMIN 3.5 g/dl (3.4-5.0); ANION GAP 14.9 (5-15); BILIRUBIN TOTAL 0.5 mg/dL (0.2-1.0); BUN/CREATININE RATIO 7.8 (14-18); CALCIUM 8.6 mg/dL (8.5-10.1); CREATININE 0.9 mg/dL (0.7-1.3); EST CRCL DRUG DOSING (CG) 87.87 mL/min; POTASSIUM,K 3.9 mEq/L (3.5-5.1); PROTEIN TOTAL,TP 6.8 g/dl (6.4-8.2)
[2025-01-06] MEDS ORDERED: Sodium Chloride 0.9% 10 ML Syringe FLUSH PRN (12:34)
[2025-01-06] MEDS: Meclizine 25 MG Tab PO ONE (12:41)
[2025-01-06 13:06] LABS: ANION GAP 12.7 (5-15); CALCIUM 8.7 mg/dL (8.5-10.1); EST CRCL DRUG DOSING (CG) 79.08 mL/min; POTASSIUM,K 3.7 mEq/L (3.5-5.1)
[2025-01-06] MEDS: Sodium Chloride 0.9% 1,000 ML IV ONE (13:54)
[2025-01-06] MEDS: Sodium Chloride 0.9% 10 ML Syringe FLUSH PRN (14:33)
[2025-01-06] MEDS: Sodium Chloride 0.9% 100 ML IV SCH (14:33)
[2025-01-06] MEDS: Iopamidol 755 Mg/ML 100 ML Bottle IVPUSH ONE (14:34)
[2025-01-06 18:58] VITALS: BP 124/83; PULSE 62
== END 2025-01-06 18:40 | disposition home or self-care (01) ==
LOC: JD.ED 09:29
DX: S06.5X9A Traumatic subdural hemorrhage with loss of consciousness of unspecified duration, initial encounter (principal); G96.08 Other cranial cerebrospinal fluid leak; M19.90 Unspecified osteoarthritis, unspecified site; K21.9 Gastro-esophageal reflux disease without esophagitis; E78.00 Pure hypercholesterolemia, unspecified; F17.210 Nicotine dependence, cigarettes, uncomplicated; W17.89XA Other fall from one level to another, initial encounter; Y93.89 Activity, other specified; Y99.0 Civilian activity done for income or pay; Y99.8 Other external cause status; Z91.018 Allergy to other foods; Z79.82 Long term (current) use of aspirin; Z79.899 Other long term (current) drug therapy
CPT/HCPCS: 36415; 70450; 70496; 70498; 80048; 80053; 85025; 99284; A9270; J7030; Q9967; 99285